=== PATIENT | female | born 1975 | race Caucasian/White ===

== ENCOUNTER 2017-03-18 16:24 | Emergency (ER) | payer MEDICAID ==
[~2017-03-18] VITALS: Ht 152.4 cm; Wt 54.4 kg
[~2017-03-18 16:24] MED LIST: MICO1COM VG
[2017-03-18 16:52] LABS: *URINE HCG, QUAL NEGATIVE (NEGATIVE)
[2017-03-18 16:53] LABS: *BILIRUBIN,URIN NEGATIVE (NEGATIVE); *BLOOD, URINE 2+ (NEGATIVE); *KETONES,URINE NEGATIVE (NEGATIVE); *PROTEIN,URINE NEGATIVE (NEGATIVE); *UROBILINOGEN,URINE 0.2 E.U./dl (NORMAL); LEUKOCYTE ESTERASE ,URINE TRACE (NEGATIVE); NITRITE, URINE NEGATIVE (NEGATIVE); PH,URINE 5.5 (5.0-8.0); UGLUCOSE NEGATIVE (NEGATIVE)
[2017-03-18 17:01] LABS: *CLARITY,URINE HAZY (CLEAR); *COLOR,URINE LIGHT YELLOW (YELLOW)
[2017-03-18 17:02] LABS: BACTERIA,URINE FEW /HPF (NONE SEEN); SQUAMOUS EPITHELIAL CELL,UR MANY /HPF (NONE SEEN)
--- NOTE | 2017-03-18 18:36 | NUR ---
Patient discharged to home in stable conditon. Written and verbal after care instructions given. Patient verbalizes understanding of instructions.
== END 2017-03-18 18:37 | disposition home or self-care (01) ==
LOC: ER 16:32
DX: R30.0 Dysuria (principal); Z88.0 Allergy status to penicillin
CPT/HCPCS: 81001; 84703; 99283; A4663

== ENCOUNTER 2017-05-22 09:32 | Emergency (ER) | payer MEDICAID ==
[~2017-05-22] VITALS: Ht 152.4 cm; Wt 51.3 kg
--- NOTE | 2017-05-22 09:54 | NUR ---
Pt c/o vaginal itching, stinging and discharge x 1 week, has been using OTC cream but it's not clearing up. Pt has no other complaints, no distress noted. Gave pt RX and d/c instructions, verbalized understanding.
== END 2017-05-22 10:04 | disposition home or self-care (01) ==
LOC: ER 09:35
DX: N76.0 Acute vaginitis (principal); Z88.0 Allergy status to penicillin
CPT/HCPCS: 99283; A4663

== ENCOUNTER 2017-06-12 12:32 | Emergency (ER) | payer MEDICAID ==
[~2017-06-12] VITALS: Ht 152.4 cm; Wt 52.6 kg
[2017-06-12 13:11] LABS: *BILIRUBIN,URIN NEGATIVE (NEGATIVE); *BLOOD, URINE 2+ (NEGATIVE); *CLARITY,URINE CLEAR (CLEAR); *COLOR,URINE YELLOW (YELLOW); *KETONES,URINE NEGATIVE (NEGATIVE); *PROTEIN,URINE NEGATIVE (NEGATIVE); *UROBILINOGEN,URINE 0.2 E.U./dl (NORMAL); LEUKOCYTE ESTERASE ,URINE 2+ (NEGATIVE); NITRITE, URINE POSITIVE (NEGATIVE); PH,URINE 5.5 (5.0-8.0); UGLUCOSE NEGATIVE (NEGATIVE)
[2017-06-12 13:22] LABS: BACTERIA,URINE MODERATE /HPF (NONE SEEN); SQUAMOUS EPITHELIAL CELL,UR MODERATE /HPF (NONE SEEN)
[2017-06-12 13:24] LABS: WBC,URINE 50-80 /HPF (0-3)
--- NOTE | 2017-06-12 13:52 | NUR ---
Patient discharged to home in stable conditon. Written and verbal after care instructions given to patient. Patient verbalizes understanding of instructions.
== END 2017-06-12 13:53 | disposition home or self-care (01) ==
LOC: ER 12:36
DX: N30.90 Cystitis, unspecified without hematuria (principal); N39.0 Urinary tract infection, site not specified
CPT/HCPCS: 81001; 87077; 87086; 87186; 99284; A4663

== ENCOUNTER 2017-10-30 12:58 | Emergency (ER) | payer MEDICAID ==
[~2017-10-30] VITALS: Ht 157.5 cm; Wt 63.5 kg
[2017-10-30] MEDS ORDERED: PHEN-894 PO (13:15)
--- NOTE | 2017-10-30 13:17 | NUR ---
PT IS IN ROOM #2B. DR GERONIMO EVALUATED THE PT.
[2017-10-30 13:28] LABS: *BILIRUBIN,URIN NEGATIVE (NEGATIVE); *BLOOD, URINE 3+ (NEGATIVE); *CLARITY,URINE CLEAR (CLEAR); *COLOR,URINE YELLOW (YELLOW); *KETONES,URINE NEGATIVE (NEGATIVE); *PROTEIN,URINE NEGATIVE (NEGATIVE); *UROBILINOGEN,URINE 0.2 E.U./dl (NORMAL); LEUKOCYTE ESTERASE ,URINE NEGATIVE (NEGATIVE); NITRITE, URINE NEGATIVE (NEGATIVE); PH,URINE 6.5 (5.0-8.0); UGLUCOSE NEGATIVE (NEGATIVE)
[2017-10-30 13:38] LABS: *URINE HCG, QUAL NEGATIVE (NEGATIVE); BACTERIA,URINE FEW /HPF (NONE SEEN); RBC,URINE 0-3 /HPF (0-3); SQUAMOUS EPITHELIAL CELL,UR FEW /HPF (NONE SEEN); WBC,URINE 0-3 /HPF (0-3)
--- NOTE | 2017-10-30 13:47 | NUR ---
PT WAS D/C TO HOME. D/C INSTRUCTIONS GIVEN TO THE PT.
[2017-10-30 13:50] VITALS: BP 122/75
== END 2017-10-30 13:51 | disposition home or self-care (01) ==
LOC: ER 12:58
DX: N30.90 Cystitis, unspecified without hematuria (principal); Z88.0 Allergy status to penicillin
CPT/HCPCS: 81001; 84703; 99284; A4663

== ENCOUNTER 2018-01-15 14:36 | Emergency (ER) | payer MEDICAID ==
[~2018-01-15] VITALS: Ht 157.5 cm; Wt 63.5 kg
[~2018-01-15 14:36] MED LIST changes: +PHEN-894 PO
[2018-01-15 15:37] LABS: *BILIRUBIN,URIN NEGATIVE (NEGATIVE); *BLOOD, URINE 2+ (NEGATIVE); *CLARITY,URINE CLEAR (CLEAR); *COLOR,URINE YELLOW (YELLOW); *KETONES,URINE NEGATIVE (NEGATIVE); *PROTEIN,URINE NEGATIVE (NEGATIVE); *UROBILINOGEN,URINE 0.2 E.U./dl (NORMAL); LEUKOCYTE ESTERASE ,URINE NEGATIVE (NEGATIVE); NITRITE, URINE NEGATIVE (NEGATIVE); UGLUCOSE NEGATIVE (NEGATIVE)
[2018-01-15 15:40] LABS: *URINE HCG, QUAL NEGATIVE (NEGATIVE)
[2018-01-15 15:41] LABS: BACTERIA,URINE NONE SEEN /HPF (NONE SEEN); RBC,URINE 0-3 /HPF (0-3); SQUAMOUS EPITHELIAL CELL,UR FEW /HPF (NONE SEEN); WBC,URINE 0-3 /HPF (0-3)
[2018-01-15 16:00] VITALS: BP 116/70
--- NOTE | 2018-01-15 16:01 | NUR ---
Patient discharged to home in stable conditon. Written and verbal after care instructions given by DR Peguero. Patient verbalizes understanding of instructions.
== END 2018-01-15 16:04 | disposition home or self-care (01) ==
LOC: ER 14:36
DX: N30.90 Cystitis, unspecified without hematuria (principal); Z88.0 Allergy status to penicillin; Z79.899 Other long term (current) drug therapy
CPT/HCPCS: 84703; 87086; A4663

== ENCOUNTER 2018-04-22 17:40 | Emergency (ER) | payer MEDICAID ==
[~2018-04-22] VITALS: Ht 152.4 cm; Wt 50.8 kg
[2018-04-22] MEDS ORDERED: ACET-2154 PO (18:17)
--- NOTE | 2018-04-22 18:30 | NUR ---
PATIENT IN ROOM. WAITING TO BE SEEN BY ER PHYSICIAN.
--- NOTE | 2018-04-22 18:33 | NUR ---
LEFT LOWER ABDOMINAL PAIN AND OCCASIONAL BACK PAIN. STATES SHE HAS HAD HISTORY OF CYST. URINE SENT OUT TO LAB.
--- NOTE | 2018-04-22 19:02 | NUR ---
SBAR GIVEN TO
--- NOTE | 2018-04-22 19:24 | NUR ---
Dr. Arevalo at bedside for MSE.
[2018-04-22 19:38] LABS: *BILIRUBIN,URIN NEGATIVE (NEGATIVE); *BLOOD, URINE 2+ (NEGATIVE); *CLARITY,URINE CLEAR (CLEAR); *COLOR,URINE YELLOW (YELLOW); *KETONES,URINE TRACE (NEGATIVE); *PROTEIN,URINE NEGATIVE (NEGATIVE); LEUKOCYTE ESTERASE ,URINE NEGATIVE (NEGATIVE); NITRITE, URINE NEGATIVE (NEGATIVE); UGLUCOSE NEGATIVE (NEGATIVE)
[2018-04-22 19:41] LABS: BACTERIA,URINE MODERATE /HPF (NONE SEEN); SQUAMOUS EPITHELIAL CELL,UR MODERATE /HPF (NONE SEEN); WBC,URINE 0-3 /HPF (0-3)
--- NOTE | 2018-04-22 20:14 | NUR ---
Ultrasound at bedside.
--- NOTE | 2018-04-22 20:49 | NUR ---
Patient discharged to home in stable conditon. Written and verbal after care instructions given. Patient verbalizes understanding of instructions. Pt ambulated out of ER with steady gait, no acute signs of distress, VSS, all belongings taken.
[2018-04-22 20:50] VITALS: BP 104/64
== END 2018-04-22 20:50 | disposition home or self-care (01) ==
LOC: ER 17:43
DX: N80.9 Endometriosis, unspecified (principal); Z88.0 Allergy status to penicillin; Z79.899 Other long term (current) drug therapy
CPT/HCPCS: 76856; A4663

== ENCOUNTER 2018-08-10 10:01 | Emergency (ER) | payer MEDICAID ==
[~2018-08-10] VITALS: Ht 152.4 cm; Wt 48.5 kg
[~2018-08-10 10:01] MED LIST changes: +ACET-2154 PO; -MICO1COM VG; -PHEN-894 PO
== END 2018-08-10 10:32 | disposition home or self-care (01) ==
LOC: ER 10:01
DX: S80.862A Insect bite (nonvenomous), left lower leg, initial encounter (principal); S80.861A Insect bite (nonvenomous), right lower leg, initial encounter; S40.862A Insect bite (nonvenomous) of left upper arm, initial encounter; S40.861A Insect bite (nonvenomous) of right upper arm, initial encounter; Z88.0 Allergy status to penicillin; W57.XXXA Bitten or stung by nonvenomous insect and other nonvenomous arthropods, initial encounter; Y93.89 Activity, other specified; Y92.89 Other specified places as the place of occurrence of the external cause; Y99.8 Other external cause status
CPT/HCPCS: A4663

== ENCOUNTER 2019-03-10 14:06 | Emergency (ER) | payer MEDICAID ==
[~2019-03-10] VITALS: Ht 152.4 cm; Wt 48.5 kg
--- NOTE | 2019-03-10 14:34 | NUR ---
Patient discharged to home in stable conditon. Written and verbal after care instructions given. Patient verbalizes understanding of instructions. Stressed follow up with pmd.
== END 2019-03-10 14:36 | disposition home or self-care (01) ==
LOC: ER 14:06
DX: N80.9 Endometriosis, unspecified (principal); Z88.0 Allergy status to penicillin; Z79.899 Other long term (current) drug therapy
CPT/HCPCS: A4663

== ENCOUNTER 2019-03-16 18:34 | Emergency (ER) | payer MEDICAID ==
[~2019-03-16] VITALS: Ht 152.4 cm; Wt 48.5 kg
--- NOTE | 2019-03-16 18:51 | NUR ---
Dr Peguero is at bedside, pending MD orders@this time.
--- NOTE | 2019-03-16 19:02 | NUR ---
Patient ambulated with stable gait. Speech is clear, speaks in complete sentences. A/Ox4. No neuro deficits. Patient came in for c/o palpitations, she frequently has changes in control medication and can not seem to find any medications suitable without any side effects or reactions. Patient recently started on new control. No respiratory distress, no cough no sob. Patient has hx of endometriosis and states she has discomfort but it is usual for her on a daily basis. Pain management maintained at home with ibuprofen administration. Patient in bed at lowest position, sr upx2, call light within reach. Fall precautions implemented per protocol.
[2019-03-16 19:18] LABS: BASOPHILS % (AUTO) 0.7 % (0.0-2.0); EOSINOPHILS # (AUTO) 0.1 K/uL (0.0-0.7); EOSINOPHILS % (AUTO) 1.4 % (0.0-7.0); HEMATOCRIT 34.8 % (31.2-41.9); HEMOGLOBIN 11.9 g/dL (10.9-14.3); LYMPHOCYTES # (AUTO) 1.9 K/uL (20.0-40.0); LYMPHOCYTES % (AUTO) 33.7 % (20.5-51.5); MEAN CORPUSCULAR HEMOGLOBIN 31.9 uug (24.7-32.8); MEAN CORPUSCULAR HGB CONC 34 g/dL (32.3-35.6); MEAN CORPUSCULAR VOLUME 93.2 fL (75.5-95.3); MONOCYTES # (AUTO) 0.4 K/uL (2.0-10.0); MONOCYTES % (AUTO) 7.8 % (0.0-11.0); NEUTROPHILS # (AUTO) 3.1 K/uL (1.8-8.9); NEUTROPHILS % (AUTO) 56.4 % (38.5-71.5); PLATELET COUNT (AUTO) 255 K/uL (179-408); RED BLOOD CELL COUNT(AUTO) 3.74 MIL/uL (3.63-4.92); WHITE BLOOD COUNT (AUTO) 5.5 K/uL (3.8-11.8)
[2019-03-16 19:24] LABS: CREATININE 0.6 mg/dL (0.6-1.3); POTASSIUM 3.2 mmol/L (3.5-5.1)
[2019-03-16 19:37] LABS: BILIRUBIN,DIRECT 0.1 mg/dL (0.0-0.2); BILIRUBIN,TOTAL 0.4 mg/dL (0.2-1.0); TOTAL PROTEIN, SERUM 7.1 g/dL (6.4-8.2)
--- NOTE | 2019-03-16 20:22 | NUR ---
Patient discharged to home in stable conditon. Written and verbal after care instructions given. Patient verbalizes understanding of instructions. Patient ambulated with stable gait.
[2019-03-16 20:26] VITALS: BP 130/72
== END 2019-03-16 20:27 | disposition home or self-care (01) ==
LOC: ER 18:35
DX: R00.2 Palpitations (principal); N80.9 Endometriosis, unspecified; Z88.0 Allergy status to penicillin; Z79.899 Other long term (current) drug therapy
CPT/HCPCS: 36415; 70030-TC; 85025; 85730; 93005; A4663

== ENCOUNTER 2019-05-07 18:36 | Emergency (ER) | payer MEDICAID ==
[~2019-05-07] VITALS: Ht 152.4 cm; Wt 47.2 kg
--- NOTE | 2019-05-07 19:05 | NUR ---
Patient ambulated with stable gait. Speech clear, speaks in complete sentences. A/Ox4. Patient came for c/o urinary frequency and reports having a foul odor when she voids. Patient started noticing these symptoms x4 days ago. Respiratory even and unlabored, no cough no sob. Afebrile denies any fever or chills. No cardiovascular distress. Denies any n/v/d
[2019-05-07 19:08] LABS: *BILIRUBIN,URIN NEGATIVE (NEGATIVE); *BLOOD, URINE 2+ (NEGATIVE); *CLARITY,URINE CLEAR (CLEAR); *COLOR,URINE LIGHT YELLOW (YELLOW); *KETONES,URINE NEGATIVE (NEGATIVE); *UROBILINOGEN,URINE 0.2 E.U./dl (NORMAL); LEUKOCYTE ESTERASE ,URINE TRACE (NEGATIVE); NITRITE, URINE NEGATIVE (NEGATIVE); PH,URINE 5.5 (5.0-8.0); UGLUCOSE NEGATIVE (NEGATIVE)
[2019-05-07 19:09] LABS: *URINE HCG, QUAL NEGATIVE (NEGATIVE)
[2019-05-07 19:14] LABS: SQUAMOUS EPITHELIAL CELL,UR FEW /HPF (NONE SEEN)
[2019-05-07 19:16] LABS: BACTERIA,URINE NONE SEEN /HPF (NONE SEEN); WBC,URINE 0-3 /HPF (0-3)
--- NOTE | 2019-05-07 19:30 | NUR ---
Patient discharged to home in stable conditon. Written and verbal after care instructions given. Patient verbalizes understanding of instructions. Patient ambulated with stable gait.
[2019-05-07 19:32] VITALS: BP 130/63
== END 2019-05-07 19:33 | disposition home or self-care (01) ==
LOC: ER 18:36
DX: N39.0 Urinary tract infection, site not specified (principal); N80.9 Endometriosis, unspecified; Z88.0 Allergy status to penicillin
CPT/HCPCS: 84703; A4663

== ENCOUNTER 2019-09-01 11:56 | Emergency (ER) | payer MEDICAID ==
[~2019-09-01] VITALS: Ht 154.9 cm; Wt 46.3 kg
--- NOTE | 2019-09-01 12:13 | NUR ---
PT IS IN ROOM #2A. DR GRIMM EVALUATED THE PT.
[2019-09-01 12:44] LABS: *BILIRUBIN,URIN NEGATIVE (NEGATIVE); *BLOOD, URINE 1+ (NEGATIVE); *CLARITY,URINE CLEAR (CLEAR); *COLOR,URINE LIGHT YELLOW (YELLOW); *KETONES,URINE NEGATIVE (NEGATIVE); *UROBILINOGEN,URINE 0.2 E.U./dl (NORMAL); LEUKOCYTE ESTERASE ,URINE NEGATIVE (NEGATIVE); NITRITE, URINE NEGATIVE (NEGATIVE); PH,URINE 7.5 (5.0-8.0); UGLUCOSE NEGATIVE (NEGATIVE)
[2019-09-01 12:55] LABS: SQUAMOUS EPITHELIAL CELL,UR FEW /HPF (NONE SEEN)
[2019-09-01 12:56] LABS: BACTERIA,URINE FEW /HPF (NONE SEEN); WBC,URINE 0-3 /HPF (0-3)
--- NOTE | 2019-09-01 13:14 | NUR ---
PT WAS D/C'd TO HOME. D/C INSTRUCTIONS GIVEN TO THE PT.
[2019-09-01 13:16] VITALS: BP 125/75
== END 2019-09-01 13:16 | disposition home or self-care (01) ==
LOC: ER 11:58
DX: N39.0 Urinary tract infection, site not specified (principal); Z88.0 Allergy status to penicillin; Z90.710 Acquired absence of both cervix and uterus
CPT/HCPCS: A4663

== ENCOUNTER 2019-09-06 09:50 | Emergency (ER) | payer MEDICAID ==
[~2019-09-06] VITALS: Ht 154.9 cm; Wt 46.3 kg
[2019-09-06 10:20] LABS: *BILIRUBIN,URIN NEGATIVE (NEGATIVE); *BLOOD, URINE 1+ (NEGATIVE); *CLARITY,URINE CLEAR (CLEAR); *COLOR,URINE LIGHT YELLOW (YELLOW); *KETONES,URINE NEGATIVE (NEGATIVE); *URINE HCG, QUAL NEGATIVE (NEGATIVE); *UROBILINOGEN,URINE 0.2 E.U./dl (NORMAL); LEUKOCYTE ESTERASE ,URINE NEGATIVE (NEGATIVE); NITRITE, URINE NEGATIVE (NEGATIVE); PH,URINE 7.5 (5.0-8.0); UGLUCOSE NEGATIVE (NEGATIVE)
[2019-09-06 10:22] LABS: RBC,URINE 0-3 /HPF (0-3)
[2019-09-06 10:23] LABS: BACTERIA,URINE FEW /HPF (NONE SEEN); SQUAMOUS EPITHELIAL CELL,UR FEW /HPF (NONE SEEN); WBC,URINE 0-3 /HPF (0-3)
--- NOTE | 2019-09-06 10:36 | NUR ---
PATIENT WAS SEEN BY . DC, RX (INCLUDING PRECAUTIONS) AND FOLLOW UP INSTRUCTIONS GIVEN AND EXPLAINED TO PATIENT WHO STATES SHE UNDERSTANDS ALL INSTRUCTIONS.
== END 2019-09-06 10:37 | disposition home or self-care (01) ==
LOC: EDBD 09:50 → ER 09:50
DX: G89.18 Other acute postprocedural pain (principal); R10.9 Unspecified abdominal pain; Z90.710 Acquired absence of both cervix and uterus; Z88.0 Allergy status to penicillin
CPT/HCPCS: 84703; A4663

== ENCOUNTER 2019-09-26 10:18 | Emergency (ER) | payer MEDICAID ==
[~2019-09-26] VITALS: Ht 154.9 cm; Wt 46.7 kg
--- NOTE | 2019-09-26 10:30 | NUR ---
Dr Red at the bedside for MSE.
[2019-09-26 10:46] LABS: *BILIRUBIN,URIN NEGATIVE (NEGATIVE); *CLARITY,URINE CLEAR (CLEAR); *COLOR,URINE YELLOW (YELLOW); *KETONES,URINE NEGATIVE (NEGATIVE); *UROBILINOGEN,URINE 0.2 E.U./dl (NORMAL); LEUKOCYTE ESTERASE ,URINE NEGATIVE (NEGATIVE); NITRITE, URINE NEGATIVE (NEGATIVE); PH,URINE 8.5 (5.0-8.0); UGLUCOSE NEGATIVE (NEGATIVE)
[2019-09-26 10:48] LABS: *BLOOD, URINE NEGATIVE (NEGATIVE)
[2019-09-26 10:54] LABS: *URINE HCG, QUAL NEGATIVE (NEGATIVE)
[2019-09-26] MEDS ORDERED: HYDROCODONE/APAP 5-325MG TABLET ONE (11:14)
[2019-09-26] MEDS ORDERED: HYDROCODONE/APAP 5-325MG TABLET PO ONE (11:15)
[2019-09-26 11:22] LABS: BASOPHILS % (AUTO) 0.6 % (0.0-2.0); EOSINOPHILS # (AUTO) 0.1 K/uL (0.0-0.7); EOSINOPHILS % (AUTO) 1.5 % (0.0-7.0); HEMATOCRIT 38.3 % (31.2-41.9); HEMOGLOBIN 12.7 g/dL (10.9-14.3); LYMPHOCYTES # (AUTO) 1.3 K/uL (20.0-40.0); LYMPHOCYTES % (AUTO) 34.4 % (20.5-51.5); MEAN CORPUSCULAR HEMOGLOBIN 31.4 uug (24.7-32.8); MEAN CORPUSCULAR HGB CONC 33 g/dL (32.3-35.6); MEAN CORPUSCULAR VOLUME 94.4 fL (75.5-95.3); MONOCYTES # (AUTO) 0.3 K/uL (2.0-10.0); MONOCYTES % (AUTO) 8.1 % (0.0-11.0); NEUTROPHILS # (AUTO) 2.1 K/uL (1.8-8.9); NEUTROPHILS % (AUTO) 55.4 % (38.5-71.5); PLATELET COUNT (AUTO) 261 K/uL (179-408); RED BLOOD CELL COUNT(AUTO) 4.05 MIL/uL (3.63-4.92); WHITE BLOOD COUNT (AUTO) 3.8 K/uL (3.8-11.8)
[2019-09-26 11:34] LABS: BILIRUBIN,DIRECT 0.1 mg/dL (0.0-0.2); BILIRUBIN,TOTAL 0.3 mg/dL (0.2-1.0); CREATININE 0.6 mg/dL (0.6-1.3); POTASSIUM 3.9 mmol/L (3.5-5.1); TOTAL PROTEIN, SERUM 7.3 g/dL (6.4-8.2)
--- NOTE | 2019-09-26 11:50 | NUR ---
Pt resting in bed, speaking on the phone, no c/o pain at this time.
--- NOTE | 2019-09-26 12:48 | NUR ---
Patient discharged to home in stable conditon. Written and verbal after care instructions given. Patient verbalizes understanding of instructions.
[2019-09-26 12:50] VITALS: BP 120/56
== END 2019-09-26 12:50 | disposition home or self-care (01) ==
LOC: ER 10:18
DX: K52.9 Noninfective gastroenteritis and colitis, unspecified (principal); Z90.710 Acquired absence of both cervix and uterus; Z88.0 Allergy status to penicillin
CPT/HCPCS: 36415; 84703; 85025; A4663

== ENCOUNTER 2019-10-14 14:13 | Emergency (ER) | payer MEDICAID ==
[~2019-10-14] VITALS: Ht 152.4 cm; Wt 46.3 kg
[2019-10-14 15:14] LABS: BASOPHILS % (AUTO) 0.9 % (0.0-2.0); EOSINOPHILS # (AUTO) 0.1 K/uL (0.0-0.7); EOSINOPHILS % (AUTO) 1.4 % (0.0-7.0); HEMATOCRIT 35.3 % (31.2-41.9); HEMOGLOBIN 11.8 g/dL (10.9-14.3); LYMPHOCYTES # (AUTO) 1.6 K/uL (20.0-40.0); LYMPHOCYTES % (AUTO) 31.8 % (20.5-51.5); MEAN CORPUSCULAR HEMOGLOBIN 31.6 uug (24.7-32.8); MEAN CORPUSCULAR HGB CONC 34 g/dL (32.3-35.6); MEAN CORPUSCULAR VOLUME 94.3 fL (75.5-95.3); MONOCYTES # (AUTO) 0.5 K/uL (2.0-10.0); MONOCYTES % (AUTO) 9.8 % (0.0-11.0); NEUTROPHILS # (AUTO) 2.9 K/uL (1.8-8.9); NEUTROPHILS % (AUTO) 56.1 % (38.5-71.5); PLATELET COUNT (AUTO) 263 K/uL (179-408); RED BLOOD CELL COUNT(AUTO) 3.74 MIL/uL (3.63-4.92); WHITE BLOOD COUNT (AUTO) 5.1 K/uL (3.8-11.8)
[2019-10-14 15:18] LABS: *BILIRUBIN,URIN NEGATIVE (NEGATIVE); *CLARITY,URINE CLEAR (CLEAR); *COLOR,URINE YELLOW (YELLOW); *KETONES,URINE NEGATIVE (NEGATIVE); *UROBILINOGEN,URINE 0.2 E.U./dl (NORMAL); LEUKOCYTE ESTERASE ,URINE NEGATIVE (NEGATIVE); NITRITE, URINE NEGATIVE (NEGATIVE); UGLUCOSE NEGATIVE (NEGATIVE)
[2019-10-14 15:19] LABS: *BLOOD, URINE TRACE (NEGATIVE)
[2019-10-14 15:36] LABS: ALANINE AMINOTRANSFERASE 26 U/L (14-59); ALKALINE PHOSPHATASE 76 U/L (50-136); ASPARTATE AMINOTRANSFERASE 16 U/L (15-37); BILIRUBIN,DIRECT 0.1 mg/dL (0.0-0.2); BILIRUBIN,TOTAL 0.2 mg/dL (0.2-1.0); CARBON DIOXIDE 27 mmol/L (21-32); CHLORIDE 105 mmol/L (98-107); CREATININE 0.5 mg/dL (0.6-1.3); GLUCOSE 83 mg/dL (74-106); LIPASE 158 U/L (73-393); POTASSIUM 3.9 mmol/L (3.5-5.1); TOTAL PROTEIN, SERUM 7.1 g/dL (6.4-8.2); UREA NITROGEN, BLOOD 7 mg/dL (7-18)
[2019-10-14 15:43] LABS: BACTERIA,URINE FEW /HPF (NONE SEEN); RBC,URINE 0-3 /HPF (0-3); SQUAMOUS EPITHELIAL CELL,UR MANY /HPF (NONE SEEN); WBC,URINE 0-3 /HPF (0-3)
--- NOTE | 2019-10-14 15:45 | NUR ---
Patient discharged to home in stable conditon. Written and verbal after care instructions given. Patient verbalizes understanding of instructions.
== END 2019-10-14 15:52 | disposition home or self-care (01) ==
LOC: ER 14:13
DX: R10.30 Lower abdominal pain, unspecified (principal); Z90.710 Acquired absence of both cervix and uterus; Z88.0 Allergy status to penicillin
CPT/HCPCS: 36415; 83690; 85025; A4663

== ENCOUNTER 2020-03-18 00:03 | Emergency (ER) | payer MEDICAID ==
[~2020-03-18] VITALS: Ht 157.5 cm; Wt 46.7 kg
--- NOTE | 2020-03-18 00:26 | NUR ---
CHAPERONED DR. WOODWARD FOR PELVIC EXAM.
[2020-03-18] MEDS ORDERED: FLUCONAZOLE 100 MG TABLET PO ONE (00:30)
[2020-03-18 00:36] LABS: *BILIRUBIN,URIN NEGATIVE (NEGATIVE); *BLOOD, URINE 1+ (NEGATIVE); *CLARITY,URINE CLEAR (CLEAR); *KETONES,URINE NEGATIVE (NEGATIVE); *UROBILINOGEN,URINE 0.2 E.U./dl (NORMAL); LEUKOCYTE ESTERASE ,URINE NEGATIVE (NEGATIVE); NITRITE, URINE NEGATIVE (NEGATIVE); UGLUCOSE NEGATIVE (NEGATIVE)
[2020-03-18 00:37] LABS: *COLOR,URINE STRAW (YELLOW)
[2020-03-18 00:42] LABS: BACTERIA,URINE NONE SEEN /HPF (NONE SEEN); RBC,URINE 0-3 /HPF (0-3); SQUAMOUS EPITHELIAL CELL,UR FEW /HPF (NONE SEEN); WBC,URINE 0-3 /HPF (0-3)
[2020-03-18] MEDS ORDERED: FLUCONAZOLE 100 MG TABLET ONE (00:48)
--- NOTE | 2020-03-18 00:51 | NUR ---
Patient discharged to home in stable condition. Written and verbal after care instructions given. Patient verbalizes understanding of instructions. Stressed follow up or return to ER for worsening s/s.
[2020-03-18 00:55] VITALS: BP 115/71
== END 2020-03-18 00:57 | disposition home or self-care (01) ==
LOC: ER 00:06
DX: B37.3 Candidiasis of vulva and vagina (principal); Z90.710 Acquired absence of both cervix and uterus
CPT/HCPCS: A4663

== ENCOUNTER 2020-03-23 07:40 | Emergency (ER) | payer MEDICAID ==
[~2020-03-23] VITALS: Ht 149.9 cm; Wt 47.2 kg
[2020-03-23 08:49] LABS: *BILIRUBIN,URIN NEGATIVE (NEGATIVE); *BLOOD, URINE 3+ (NEGATIVE); *CLARITY,URINE SLIGHTLY CLOUDY (CLEAR); *COLOR,URINE YELLOW (YELLOW); *KETONES,URINE NEGATIVE (NEGATIVE); *URINE HCG, QUAL NEGATIVE (NEGATIVE); *UROBILINOGEN,URINE 0.2 E.U./dl (NORMAL); LEUKOCYTE ESTERASE ,URINE 1+ (NEGATIVE); NITRITE, URINE NEGATIVE (NEGATIVE); UGLUCOSE NEGATIVE (NEGATIVE)
[2020-03-23 08:56] LABS: SQUAMOUS EPITHELIAL CELL,UR MANY /HPF (NONE SEEN)
[2020-03-23 08:57] LABS: BACTERIA,URINE MANY /HPF (NONE SEEN)
[2020-03-23 09:04] LABS: RBC,URINE 0-3 /HPF (0-3)
[2020-03-23] MEDS ORDERED: PHENAZOPYRIDINE HCL 100 MG TABLET PO ONE (09:15)
[2020-03-23] MEDS ORDERED: NITROFURANTOIN/NITROFURAN MAC 100 MG CAPSULE PO ONE (09:15)
[2020-03-23] MEDS ORDERED: PHENAZOPYRIDINE HCL 100 MG TABLET ONE (09:20)
[2020-03-23] MEDS ORDERED: NITROFURANTOIN/NITROFURAN MAC 100 MG CAPSULE ONE (09:20)
--- NOTE | 2020-03-23 09:30 | NUR ---
Gave pt RX and d/c instructions, verbalized understanding.
== END 2020-03-23 09:35 | disposition home or self-care (01) ==
LOC: ER 07:40
DX: N30.01 Acute cystitis with hematuria (principal); Z90.710 Acquired absence of both cervix and uterus
CPT/HCPCS: 84703; 87077; 87086; A4663

== ENCOUNTER 2020-05-10 15:09 | Emergency (ER) | payer MEDICAID ==
[~2020-05-10] VITALS: Ht 149.9 cm; Wt 47.2 kg
[2020-05-10] MEDS ORDERED: IV NORMAL SALINE 1000 ML BAG IV ONE (15:45)
[2020-05-10 15:51] LABS: *BILIRUBIN,URIN NEGATIVE (NEGATIVE); *CLARITY,URINE CLEAR (CLEAR); *COLOR,URINE LIGHT YELLOW (YELLOW); *KETONES,URINE NEGATIVE (NEGATIVE); *URINE HCG, QUAL NEG (NEGATIVE); *UROBILINOGEN,URINE 0.2 E.U./dl (NORMAL); LEUKOCYTE ESTERASE ,URINE NEGATIVE (NEGATIVE); NITRITE, URINE NEGATIVE (NEGATIVE); UGLUCOSE NEGATIVE (NEGATIVE)
[2020-05-10 15:52] LABS: *BLOOD, URINE TRACE (NEGATIVE)
[2020-05-10 15:59] LABS: BASOPHILS % (AUTO) 0.6 % (0.0-2.0); EOSINOPHILS # (AUTO) 0.1 K/uL (0.0-0.7); EOSINOPHILS % (AUTO) 1.2 % (0.0-7.0); HEMATOCRIT 38.8 % (31.2-41.9); LYMPHOCYTES # (AUTO) 1.7 K/uL (20.0-40.0); LYMPHOCYTES % (AUTO) 28.3 % (20.5-51.5); MEAN CORPUSCULAR HEMOGLOBIN 31.7 uug (24.7-32.8); MEAN CORPUSCULAR HGB CONC 33 g/dL (32.3-35.6); MEAN CORPUSCULAR VOLUME 94.8 fL (75.5-95.3); MONOCYTES # (AUTO) 0.5 K/uL (2.0-10.0); MONOCYTES % (AUTO) 9.1 % (0.0-11.0); NEUTROPHILS # (AUTO) 3.6 K/uL (1.8-8.9); NEUTROPHILS % (AUTO) 60.8 % (38.5-71.5); PLATELET COUNT (AUTO) 277 K/uL (179-408); RED BLOOD CELL COUNT(AUTO) 4.09 MIL/uL (3.63-4.92); WHITE BLOOD COUNT (AUTO) 5.9 K/uL (3.8-11.8)
[2020-05-10 16:14] LABS: ALANINE AMINOTRANSFERASE 18 U/L (14-59); ALKALINE PHOSPHATASE 59 U/L (50-136); ASPARTATE AMINOTRANSFERASE 19 U/L (15-37); BILIRUBIN,DIRECT < 0.1 mg/dL (0.0-0.2); BILIRUBIN,TOTAL 0.2 mg/dL (0.2-1.0); CARBON DIOXIDE 28 mmol/L (21-32); CHLORIDE 106 mmol/L (98-107); CREATININE 0.8 mg/dL (0.6-1.3); GLUCOSE 92 mg/dL (74-106); POTASSIUM 3.9 mmol/L (3.5-5.1); TOTAL PROTEIN, SERUM 7.7 g/dL (6.4-8.2); UREA NITROGEN, BLOOD 7 mg/dL (7-18)
[2020-05-10 17:10] VITALS: BP 110/57
[2020-05-10 17:41] LABS: BACTERIA,URINE NONE SEEN /HPF (NONE SEEN); SQUAMOUS EPITHELIAL CELL,UR FEW /HPF (NONE SEEN); WBC,URINE 0-3 /HPF (0-3)
== END 2020-05-10 17:11 | disposition home or self-care (01) ==
LOC: ER 15:13
DX: R10.32 Left lower quadrant pain (principal); Z90.710 Acquired absence of both cervix and uterus; Z87.19 Personal history of other diseases of the digestive system
CPT/HCPCS: 36415; 84703; 85025; A4663; J7030

== ENCOUNTER 2020-06-25 05:52 | Emergency (ER) | payer MEDICAID ==
[~2020-06-25] VITALS: Ht 165.1 cm; Wt 47.2 kg
[2020-06-25] MEDS ORDERED: KETOROLAC TROMETHAMINE 15 MG INJ IVP ONE (06:45)
[2020-06-25] MEDS ORDERED: IV NORMAL SALINE 1000 ML BAG IV ONE (06:45)
[2020-06-25 06:46] LABS: *BILIRUBIN,URIN NEGATIVE (NEGATIVE); *BLOOD, URINE 1+ (NEGATIVE); *CLARITY,URINE CLEAR (CLEAR); *COLOR,URINE YELLOW (YELLOW); *KETONES,URINE NEGATIVE (NEGATIVE); *UROBILINOGEN,URINE 0.2 E.U./dl (NORMAL); LEUKOCYTE ESTERASE ,URINE NEGATIVE (NEGATIVE); NITRITE, URINE NEGATIVE (NEGATIVE); UGLUCOSE NEGATIVE (NEGATIVE)
[2020-06-25 06:58] LABS: BASOPHILS % (AUTO) 0.5 % (0.0-2.0); EOSINOPHILS % (AUTO) 0.9 % (0.0-7.0); HEMATOCRIT 38.1 % (31.2-41.9); HEMOGLOBIN 12.8 g/dL (10.9-14.3); LYMPHOCYTES # (AUTO) 1.8 K/uL (20.0-40.0); LYMPHOCYTES % (AUTO) 33.4 % (20.5-51.5); MEAN CORPUSCULAR HEMOGLOBIN 31.9 uug (24.7-32.8); MEAN CORPUSCULAR HGB CONC 34 g/dL (32.3-35.6); MEAN CORPUSCULAR VOLUME 94.5 fL (75.5-95.3); MONOCYTES # (AUTO) 0.6 K/uL (2.0-10.0); MONOCYTES % (AUTO) 10.9 % (0.0-11.0); NEUTROPHILS # (AUTO) 2.9 K/uL (1.8-8.9); NEUTROPHILS % (AUTO) 54.3 % (38.5-71.5); PLATELET COUNT (AUTO) 276 K/uL (179-408); RED BLOOD CELL COUNT(AUTO) 4.03 MIL/uL (3.63-4.92); WHITE BLOOD COUNT (AUTO) 5.4 K/uL (3.8-11.8)
[2020-06-25 07:04] LABS: CREATININE 0.8 mg/dL (0.6-1.3); POTASSIUM 3.5 mmol/L (3.5-5.1)
[2020-06-25] MEDS ORDERED: KETOROLAC TROMETHAMINE 15 MG INJ ONE (07:15)
--- NOTE | 2020-06-25 07:35 | NUR ---
Female [employer] teacher accompanied female patient for (Dr Montanez).
--- NOTE | 2020-06-25 08:36 | NUR ---
IV removed. Catheter intact and site benign. Pressure and 4x4 gauze applied to site. No bleeding noted.Patient discharged to home in stable condition. Written and verbal after care instructions given. Patient verbalizes understanding of instructions. Stressed follow up or return to ER for worsening s/s. Patient ambulated with steady gait. NAD noted
[2020-06-25 08:39] VITALS: BP 116/69
[2020-06-25 13:06] LABS: BACTERIA,URINE FEW /HPF (NONE SEEN); RBC,URINE 0-3 /HPF (0-3); SQUAMOUS EPITHELIAL CELL,UR FEW /HPF (NONE SEEN); WBC,URINE NONE SEEN /HPF (0-3)
== END 2020-06-25 08:36 | disposition home or self-care (01) ==
LOC: ER 06:07
DX: R10.2 Pelvic and perineal pain (principal); Z87.440 Personal history of urinary (tract) infections; Z88.0 Allergy status to penicillin; Z90.710 Acquired absence of both cervix and uterus; Z87.19 Personal history of other diseases of the digestive system
CPT/HCPCS: 36415; 76770; 80048; 81001; 85025; 96374; 99284; J1885; A4663; J7030

== ENCOUNTER 2020-08-16 23:45 | Emergency (ER) | payer MEDICAID ==
[~2020-08-16] VITALS: Ht 152.4 cm; Wt 47.2 kg
[2020-08-17 00:12] LABS: BASOPHILS % (AUTO) 0.7 % (0.0-2.0); EOSINOPHILS # (AUTO) 0.1 K/uL (0.0-0.7); EOSINOPHILS % (AUTO) 2.1 % (0.0-7.0); HEMATOCRIT 36.3 % (31.2-41.9); HEMOGLOBIN 12.2 g/dL (10.9-14.3); LYMPHOCYTES # (AUTO) 2.2 K/uL (20.0-40.0); LYMPHOCYTES % (AUTO) 43.7 % (20.5-51.5); MEAN CORPUSCULAR HEMOGLOBIN 32.2 uug (24.7-32.8); MEAN CORPUSCULAR HGB CONC 34 g/dL (32.3-35.6); MEAN CORPUSCULAR VOLUME 95.6 fL (75.5-95.3); MONOCYTES # (AUTO) 0.5 K/uL (2.0-10.0); MONOCYTES % (AUTO) 9.7 % (0.0-11.0); NEUTROPHILS # (AUTO) 2.2 K/uL (1.8-8.9); NEUTROPHILS % (AUTO) 43.8 % (38.5-71.5); PLATELET COUNT (AUTO) 281 K/uL (179-408); WHITE BLOOD COUNT (AUTO) 5.1 K/uL (3.8-11.8)
[2020-08-17 00:12] LABS: *BILIRUBIN,URIN NEGATIVE (NEGATIVE); *BLOOD, URINE 1+ (NEGATIVE); *CLARITY,URINE CLEAR (CLEAR); *COLOR,URINE LIGHT YELLOW (YELLOW); *KETONES,URINE NEGATIVE (NEGATIVE); *UROBILINOGEN,URINE 0.2 E.U./dl (NORMAL); LEUKOCYTE ESTERASE ,URINE NEGATIVE (NEGATIVE); NITRITE, URINE NEGATIVE (NEGATIVE); UGLUCOSE NEGATIVE (NEGATIVE)
[2020-08-17 00:17] LABS: CREATININE 0.6 mg/dL (0.6-1.3); POTASSIUM 3.8 mmol/L (3.5-5.1)
[2020-08-17 00:23] LABS: BILIRUBIN,DIRECT 0.1 mg/dL (0.0-0.2); BILIRUBIN,TOTAL 0.2 mg/dL (0.2-1.0); TOTAL PROTEIN, SERUM 7.4 g/dL (6.4-8.2)
[2020-08-17] MEDS: IBUPROFEN 600 MG TABLET PO ONE (00:43)
[2020-08-17 00:45] VITALS: BP 118/74
[2020-08-17] MEDS ORDERED: IBUPROFEN 600 MG TABLET ONE (00:47)
[2020-08-17 03:35] LABS: BACTERIA,URINE NONE SEEN /HPF (NONE SEEN); RBC,URINE 0-3 /HPF (0-3); SQUAMOUS EPITHELIAL CELL,UR FEW /HPF (NONE SEEN); WBC,URINE 0-3 /HPF (0-3)
== END 2020-08-17 00:40 | disposition home or self-care (01) ==
LOC: ER 23:48
DX: G89.29 Other chronic pain (principal); R10.30 Lower abdominal pain, unspecified; Z90.710 Acquired absence of both cervix and uterus; Z88.0 Allergy status to penicillin; Z87.440 Personal history of urinary (tract) infections; Z86.19 Personal history of other infectious and parasitic diseases
CPT/HCPCS: 36415; 83690; 85025

== ENCOUNTER 2020-10-11 07:21 | Emergency (ER) | payer MEDICAID ==
[~2020-10-11] VITALS: Ht 152.4 cm; Wt 47.2 kg
[2020-10-11 07:49] LABS: *BILIRUBIN,URIN NEGATIVE (NEGATIVE); *BLOOD, URINE 3+ (NEGATIVE); *CLARITY,URINE CLEAR (CLEAR); *COLOR,URINE Orange (YELLOW); *KETONES,URINE NEGATIVE (NEGATIVE); LEUKOCYTE ESTERASE ,URINE 1+ (NEGATIVE); NITRITE, URINE POSITIVE (NEGATIVE); UGLUCOSE TRACE (NEGATIVE)
[2020-10-11 07:50] VITALS: BP 99/73
[2020-10-11 07:52] LABS: *URINE HCG, QUAL NEG (NEGATIVE)
[2020-10-11 11:02] LABS: BACTERIA,URINE MODERATE /HPF (NONE SEEN); SQUAMOUS EPITHELIAL CELL,UR MODERATE /HPF (NONE SEEN)
== END 2020-10-11 07:52 | disposition home or self-care (01) ==
LOC: ER 07:21
DX: N39.0 Urinary tract infection, site not specified (principal); Z90.710 Acquired absence of both cervix and uterus; Z87.440 Personal history of urinary (tract) infections
CPT/HCPCS: 84703; 87077; 87086; A4663

== ENCOUNTER 2020-10-18 09:50 | Emergency (ER) | payer MEDICAID ==
[~2020-10-18] VITALS: Ht 154.9 cm; Wt 59.0 kg
[2020-10-18 11:10] LABS: *URINE HCG, QUAL NEG (NEGATIVE)
[2020-10-18 11:11] LABS: *BILIRUBIN,URIN 1+ (NEGATIVE); *BLOOD, URINE 3+ (NEGATIVE); *CLARITY,URINE TURBID (CLEAR); *COLOR,URINE DARK YELLOW (YELLOW); *KETONES,URINE NEGATIVE (NEGATIVE); LEUKOCYTE ESTERASE ,URINE 3+ (NEGATIVE); NITRITE, URINE POSITIVE (NEGATIVE); UGLUCOSE NEGATIVE (NEGATIVE)
[2020-10-18 11:33] VITALS: BP 110/66
[2020-10-18 15:39] LABS: BACTERIA,URINE MODERATE /HPF (NONE SEEN); RBC,URINE 50-80 /HPF (0-3); SQUAMOUS EPITHELIAL CELL,UR NONE SEEN /HPF (NONE SEEN); WBC,URINE TNTC /HPF (0-3)
== END 2020-10-18 11:33 | disposition home or self-care (01) ==
LOC: ER 09:50
DX: N39.0 Urinary tract infection, site not specified (principal); Z90.710 Acquired absence of both cervix and uterus
CPT/HCPCS: 84703; 87077; 87086; A4663

== ENCOUNTER 2020-10-25 11:19 | Emergency (ER) | payer MEDICAID ==
[~2020-10-25] VITALS: Ht 152.4 cm; Wt 47.6 kg
[2020-10-25 11:46] VITALS: BP 101/68
[2020-10-25 11:50] LABS: *BILIRUBIN,URIN NEGATIVE (NEGATIVE); *BLOOD, URINE 2+ (NEGATIVE); *COLOR,URINE YELLOW (YELLOW); *KETONES,URINE NEGATIVE (NEGATIVE); *UROBILINOGEN,URINE 0.2 E.U./dl (NORMAL); LEUKOCYTE ESTERASE ,URINE 2+ (NEGATIVE); NITRITE, URINE POSITIVE (NEGATIVE); UGLUCOSE NEGATIVE (NEGATIVE)
[2020-10-25 11:56] LABS: *CLARITY,URINE TURBID (CLEAR); RBC,URINE 50-80 /HPF (0-3); WBC,URINE TNTC /HPF (0-3)
[2020-10-25 11:57] LABS: BACTERIA,URINE MODERATE /HPF (NONE SEEN); SQUAMOUS EPITHELIAL CELL,UR MODERATE /HPF (NONE SEEN)
== END 2020-10-25 11:47 | disposition home or self-care (01) ==
LOC: ER 11:19
DX: N39.0 Urinary tract infection, site not specified (principal); G89.29 Other chronic pain; R10.9 Unspecified abdominal pain; Z90.710 Acquired absence of both cervix and uterus; Z87.440 Personal history of urinary (tract) infections
CPT/HCPCS: 87086; A4663

== ENCOUNTER 2020-10-28 18:11 | Emergency (ER) | payer MEDICAID ==
[~2020-10-28] VITALS: Ht 152.4 cm; Wt 47.2 kg
[2020-10-28] MEDS ORDERED: CEPH-570 PO (18:28)
[2020-10-28 18:59] LABS: *BILIRUBIN,URIN 1+ (NEGATIVE); *BLOOD, URINE 1+ (NEGATIVE); *COLOR,URINE DARK YELLOW (YELLOW); *KETONES,URINE NEGATIVE (NEGATIVE); LEUKOCYTE ESTERASE ,URINE NEGATIVE (NEGATIVE); NITRITE, URINE POSITIVE (NEGATIVE); PH,URINE 6.5 (5.0-8.0); UGLUCOSE TRACE (NEGATIVE)
[2020-10-28 19:04] LABS: *URINE HCG, QUAL NEGATIVE (NEGATIVE)
[2020-10-28 19:15] LABS: *CLARITY,URINE HAZY (CLEAR); BACTERIA,URINE FEW /HPF (NONE SEEN); SQUAMOUS EPITHELIAL CELL,UR MODERATE /HPF (NONE SEEN)
[2020-10-28] MEDS: CEFTRIAXONE 500 MG VIAL IM ONE (19:58)
[2020-10-28] MEDS ORDERED: CEFTRIAXONE 500 MG VIAL ONE (19:58)
[2020-10-28] MEDS ORDERED: LIDOCAINE HCL 1% 20 ML VIAL ONE (19:58)
[2020-10-28] MEDS ORDERED: AZITHROMYCIN 250 MG TABLET ONE (19:58)
[2020-10-28] MEDS: AZITHROMYCIN 250 MG TABLET PO ONE (19:58)
[2020-10-28 20:16] VITALS: BP 107/68
== END 2020-10-28 20:16 | disposition home or self-care (01) ==
LOC: ER 18:21
DX: N30.90 Cystitis, unspecified without hematuria (principal); Z87.440 Personal history of urinary (tract) infections; Z90.710 Acquired absence of both cervix and uterus
CPT/HCPCS: 81001; 84703; 87086; 87491; 96372; 99283; J0696; J3490; A4663; Q0144

== ENCOUNTER 2021-07-24 00:19 | Emergency (ER) | payer SELFPAY ==
[~2021-07-24] VITALS: Ht 157.5 cm; Wt 48.1 kg
[~2021-07-24 00:19] MED LIST changes: -ACET-2154 PO; +CEPH-570 PO
[2021-07-24 00:40] LABS: *BILIRUBIN,URIN NEGATIVE (NEGATIVE); *BLOOD, URINE 1+ (NEGATIVE); *CLARITY,URINE CLEAR (CLEAR); *COLOR,URINE YELLOW (YELLOW); *KETONES,URINE NEGATIVE (NEGATIVE); *UROBILINOGEN,URINE 0.2 E.U./dl (NORMAL); LEUKOCYTE ESTERASE ,URINE NEGATIVE (NEGATIVE); NITRITE, URINE NEGATIVE (NEGATIVE); UGLUCOSE NEGATIVE (NEGATIVE)
[2021-07-24 00:58] LABS: *URINE HCG, QUAL NEGATIVE (NEGATIVE); BACTERIA,URINE NONE SEEN /HPF (NONE SEEN); SQUAMOUS EPITHELIAL CELL,UR FEW /HPF (NONE SEEN); WBC,URINE NONE SEEN /HPF (0-3)
[2021-07-24] MEDS ORDERED: HYDR-4209 PO (01:33)
[2021-07-24] MEDS ORDERED: HYDROCODONE/APAP 5-325MG TABLET ONE (01:41)
[2021-07-24] MEDS ORDERED: HYDROCODONE/APAP 5-325MG TABLET PO ONE (01:45)
[2021-07-24 02:07] VITALS: BP 117/75
== END 2021-07-24 02:07 | disposition home or self-care (01) ==
LOC: ER 00:22
DX: N30.11 Interstitial cystitis (chronic) with hematuria (principal); G89.29 Other chronic pain; R10.2 Pelvic and perineal pain; R03.0 Elevated blood-pressure reading, without diagnosis of hypertension; Z90.710 Acquired absence of both cervix and uterus
CPT/HCPCS: 84703; A4663

== ENCOUNTER 2021-08-17 15:29 | Emergency (ER) | payer MEDICAID ==
[~2021-08-17] VITALS: Ht 157.5 cm; Wt 48.1 kg
[~2021-08-17 15:29] MED LIST changes: +HYDR-4209 PO
[2021-08-17] MEDS ORDERED: FLUC150T PO (15:57)
[2021-08-17] MEDS ORDERED: NITR100C11 PO (15:57)
[2021-08-17 16:00] LABS: *BILIRUBIN,URIN NEGATIVE (NEGATIVE); *BLOOD, URINE 1+ (NEGATIVE); *CLARITY,URINE CLEAR (CLEAR); *COLOR,URINE LIGHT YELLOW (YELLOW); *KETONES,URINE NEGATIVE (NEGATIVE); *UROBILINOGEN,URINE 0.2 E.U./dl (NORMAL); LEUKOCYTE ESTERASE ,URINE NEGATIVE (NEGATIVE); NITRITE, URINE NEGATIVE (NEGATIVE); PH,URINE 6.5 (5.0-8.0); UGLUCOSE NEGATIVE (NEGATIVE)
--- NOTE | 2021-08-17 16:10 | NUR ---
[employer] Supervisor assumes care: (1st contact with patient) Patient is AOx4, for discharge by Dr Villagomez. Urine specimen was sent earlier. Patient left ER in stable condition. Written and verbal after care instructions given to patient. Patient verbalized understanding and compliance of instructions. Stressed follow up with her primary doctor or return to ER for worsening s/s.
[2021-08-17 16:11] LABS: *URINE HCG, QUAL NEGATIVE (NEGATIVE); BACTERIA,URINE NONE SEEN /HPF (NONE SEEN); WBC,URINE 0-3 /HPF (0-3)
[2021-08-17 16:12] LABS: SQUAMOUS EPITHELIAL CELL,UR FEW /HPF (NONE SEEN)
== END 2021-08-17 16:11 | disposition home or self-care (01) ==
LOC: ER 15:29
DX: N39.0 Urinary tract infection, site not specified (principal); N76.0 Acute vaginitis
CPT/HCPCS: 84703; 87086; A4663

== ENCOUNTER 2021-08-19 14:43 | Emergency (ER) | payer MEDICAID ==
[~2021-08-19] VITALS: Ht 167.6 cm; Wt 54.4 kg
[~2021-08-19 14:43] MED LIST changes: +FLUC150T PO; +NITR100C11 PO
[2021-08-19 15:27] LABS: *URINE HCG, QUAL NEG (NEGATIVE)
[2021-08-19 15:28] LABS: *BILIRUBIN,URIN NEGATIVE (NEGATIVE); *BLOOD, URINE TRACE (NEGATIVE); *CLARITY,URINE CLEAR (CLEAR); *COLOR,URINE LIGHT YELLOW (YELLOW); *KETONES,URINE NEGATIVE (NEGATIVE); *UROBILINOGEN,URINE 0.2 E.U./dl (NORMAL); LEUKOCYTE ESTERASE ,URINE NEGATIVE (NEGATIVE); NITRITE, URINE NEGATIVE (NEGATIVE); UGLUCOSE NEGATIVE (NEGATIVE)
--- NOTE | 2021-08-19 16:09 | NUR ---
CHAPERONED MD WITH VAGINAL EXAM.
[2021-08-19] MEDS ORDERED: TERC20CR5 VG (16:17)
[2021-08-19] MEDS ORDERED: FLUC150T5 PO (16:23)
[2021-08-19 17:52] LABS: BACTERIA,URINE NONE SEEN /HPF (NONE SEEN); RBC,URINE 0-3 /HPF (0-3); SQUAMOUS EPITHELIAL CELL,UR FEW /HPF (NONE SEEN); WBC,URINE 0-3 /HPF (0-3)
== END 2021-08-19 16:25 | disposition home or self-care (01) ==
LOC: ER 14:43
DX: N76.0 Acute vaginitis (principal); Z90.710 Acquired absence of both cervix and uterus; G89.29 Other chronic pain; R10.9 Unspecified abdominal pain; Z87.440 Personal history of urinary (tract) infections
CPT/HCPCS: 84703; 87210; 87491; A4663

== ENCOUNTER 2021-10-21 13:12 | Emergency (ER) | payer MEDICAID ==
[~2021-10-21] VITALS: Ht 167.6 cm; Wt 54.4 kg
[~2021-10-21 13:12] MED LIST changes: +FLUC150T5 PO; +TERC20CR5 VG
[2021-10-21 13:33] LABS: *BILIRUBIN,URIN NEGATIVE (NEGATIVE); *BLOOD, URINE 1+ (NEGATIVE); *CLARITY,URINE CLEAR (CLEAR); *COLOR,URINE YELLOW (YELLOW); *KETONES,URINE NEGATIVE (NEGATIVE); *UROBILINOGEN,URINE 0.2 E.U./dl (NORMAL); LEUKOCYTE ESTERASE ,URINE NEGATIVE (NEGATIVE); NITRITE, URINE NEGATIVE (NEGATIVE); UGLUCOSE NEGATIVE (NEGATIVE)
[2021-10-21 13:35] LABS: *URINE HCG, QUAL NEG (NEGATIVE)
--- NOTE | 2021-10-21 14:00 | NUR ---
ASSISSTED MD WITH VAG EXAM, WET MOUNT SENT TO LAB
[2021-10-21 17:44] LABS: BACTERIA,URINE FEW /HPF (NONE SEEN); SQUAMOUS EPITHELIAL CELL,UR MANY /HPF (NONE SEEN); WBC,URINE 0-3 /HPF (0-3)
[2021-10-21] MEDS ORDERED: FLUC200T8 PO (17:45)
[2021-10-21] MEDS ORDERED: CEPH500C2 PO (17:45)
[2021-10-23 08:06] LABS: *TRIC.VAG. NAA Negative (Negative)
[2021-10-23 15:06] LABS: *GC NAA Negative (Negative)
== END 2021-10-21 17:48 | disposition home or self-care (01) ==
LOC: ER 13:12
DX: L29.2 Pruritus vulvae (principal); Z87.440 Personal history of urinary (tract) infections; Z90.710 Acquired absence of both cervix and uterus; G89.29 Other chronic pain; R10.9 Unspecified abdominal pain
CPT/HCPCS: 84703; 87210; 87491; A4663

== ENCOUNTER 2021-12-21 08:06 | Emergency (ER) | payer MEDICAID ==
[~2021-12-21] VITALS: Ht 154.9 cm; Wt 49.0 kg
[~2021-12-21 08:06] MED LIST changes: +CEPH500C2 PO; +FLUC200T8 PO
--- NOTE | 2021-12-21 08:19 | NUR ---
PT IS IN ROOM #2A. DR GERONIMO EVALUATED THE PT.
[2021-12-21] MEDS ORDERED: VALIUM (08:20)
[2021-12-21] MEDS ORDERED: TRAMADOL (08:20)
[2021-12-21 08:30] LABS: *BILIRUBIN,URIN NEGATIVE (NEGATIVE); *BLOOD, URINE 3+ (NEGATIVE); *CLARITY,URINE SLIGHTLY CLOUDY (CLEAR); *COLOR,URINE Brown (YELLOW); *KETONES,URINE NEGATIVE (NEGATIVE); *UROBILINOGEN,URINE 0.2 E.U./dl (NORMAL); LEUKOCYTE ESTERASE ,URINE 2+ (NEGATIVE); NITRITE, URINE NEGATIVE (NEGATIVE); UGLUCOSE NEGATIVE (NEGATIVE)
[2021-12-21] MEDS ORDERED: NITR100C11 PO (08:37)
--- NOTE | 2021-12-21 08:42 | NUR ---
PT WAS D/C'd TO HOME. D/C INSTRUCTIONS GIVEN TO THE PT BY DR GERONIMO.
[2021-12-21 08:43] VITALS: BP 131/71
[2021-12-21 10:51] LABS: WBC,URINE 20-50 /HPF (0-3)
[2021-12-21 10:52] LABS: BACTERIA,URINE MODERATE /HPF (NONE SEEN); SQUAMOUS EPITHELIAL CELL,UR MODERATE /HPF (NONE SEEN)
== END 2021-12-21 08:43 | disposition home or self-care (01) ==
LOC: ER 08:06
DX: N30.90 Cystitis, unspecified without hematuria (principal); Z87.440 Personal history of urinary (tract) infections; Z90.710 Acquired absence of both cervix and uterus; Z88.0 Allergy status to penicillin
CPT/HCPCS: 87086; A4663

== ENCOUNTER 2021-12-27 16:53 | Emergency (ER) | payer MEDICAID ==
[~2021-12-27] VITALS: Ht 152.4 cm; Wt 48.5 kg
[~2021-12-27 16:53] MED LIST changes: -CEPH-570 PO; -CEPH500C2 PO; -FLUC150T PO; -FLUC150T5 PO; -FLUC200T8 PO; -HYDR-4209 PO; -TERC20CR5 VG; +TRAMADOL; +VALIUM
[2021-12-27] MEDS ORDERED: CEPH500C2 PO (17:35)
[2021-12-27] MEDS ORDERED: FLUC150T PO (17:36)
[2021-12-27 17:41] LABS: *BILIRUBIN,URIN NEGATIVE (NEGATIVE); *BLOOD, URINE 3+ (NEGATIVE); *CLARITY,URINE SLIGHTLY CLOUDY (CLEAR); *COLOR,URINE Orange (YELLOW); *KETONES,URINE NEGATIVE (NEGATIVE); LEUKOCYTE ESTERASE ,URINE 3+ (NEGATIVE); NITRITE, URINE POSITIVE (NEGATIVE); UGLUCOSE TRACE (NEGATIVE)
[2021-12-27 17:42] LABS: *URINE HCG, QUAL NEG (NEGATIVE)
[2021-12-27 17:52] VITALS: BP 111/76
[2021-12-27 18:47] LABS: BACTERIA,URINE MODERATE /HPF (NONE SEEN); RBC,URINE 20-50 /HPF (0-3); SQUAMOUS EPITHELIAL CELL,UR FEW /HPF (NONE SEEN); WBC,URINE TNTC /HPF (0-3)
== END 2021-12-27 17:53 | disposition home or self-care (01) ==
LOC: ER 16:56
DX: N39.0 Urinary tract infection, site not specified (principal); B95.1 Streptococcus, group B, as the cause of diseases classified elsewhere; Z90.710 Acquired absence of both cervix and uterus
CPT/HCPCS: 84703; 87086; A4663

== ENCOUNTER 2022-04-09 01:35 | Emergency (ER) | payer MEDICAID ==
[~2022-04-09] VITALS: Ht 167.6 cm; Wt 49.9 kg
[~2022-04-09 01:35] MED LIST changes: +CEPH500C2 PO; +FLUC150T PO
--- NOTE | 2022-04-09 01:45 | NUR ---
Patient walked into ER c/o abdominal pain. Patient states she had laparoscopic appendectomy 1 week ago and states she has had only one BM since. Also request surgical site check for possible infection.
--- NOTE | 2022-04-09 02:00 | NUR ---
Dr. May on bedside for MSE.
[2022-04-09 03:00] LABS: *BILIRUBIN,URIN NEGATIVE (NEGATIVE); *CLARITY,URINE CLEAR (CLEAR); *COLOR,URINE YELLOW (YELLOW); *KETONES,URINE NEGATIVE (NEGATIVE); *UROBILINOGEN,URINE 0.2 E.U./dl (NORMAL); LEUKOCYTE ESTERASE ,URINE NEGATIVE (NEGATIVE); NITRITE, URINE NEGATIVE (NEGATIVE); PH,URINE 6.5 (5.0-8.0); UGLUCOSE NEGATIVE (NEGATIVE)
[2022-04-09 03:01] LABS: *BLOOD, URINE TRACE (NEGATIVE)
[2022-04-09 03:24] LABS: BACTERIA,URINE NONE SEEN /HPF (NONE SEEN); RBC,URINE 0-3 /HPF (0-3); SQUAMOUS EPITHELIAL CELL,UR MODERATE /HPF (NONE SEEN); WBC,URINE 0-3 /HPF (0-3)
[2022-04-09 03:53] LABS: CREATININE 0.7 mg/dL (0.6-1.3); POTASSIUM 4.2 mmol/L (3.5-5.1)
[2022-04-09 03:56] LABS: HEMATOCRIT 31.5 % (31.2-41.9); MEAN CORPUSCULAR HEMOGLOBIN 32.1 uug (24.7-32.8); MEAN CORPUSCULAR VOLUME 91.8 fL (75.5-95.3); PLATELET COUNT (AUTO) 263 K/uL (179-408)
[2022-04-09 03:59] LABS: BILIRUBIN,TOTAL 0.2 mg/dL (0.2-1.0); TOTAL PROTEIN, SERUM 6.8 g/dL (6.4-8.2)
[2022-04-09] MEDS ORDERED: TRIA15CR2 TP (04:59)
[2022-04-09 05:03] VITALS: BP 111/77
--- NOTE | 2022-04-09 05:03 | NUR ---
Patient discharged to home in stable condition. Written and verbal after care instructions given. Patient verbalizes understanding of instructions. Stressed follow up or return to ER for worsening s/s. Patient ambulated fr the ER with steady gait. All belongings with patient.
== END 2022-04-09 05:04 | disposition home or self-care (01) ==
LOC: ER 01:54
DX: R10.2 Pelvic and perineal pain (principal); Z90.710 Acquired absence of both cervix and uterus; G89.29 Other chronic pain; Z88.0 Allergy status to penicillin
CPT/HCPCS: 36415; 85025; 87086; A4663

== ENCOUNTER 2022-05-30 09:31 | Emergency (ER) | payer MEDICAID ==
[~2022-05-30] VITALS: Ht 152.4 cm; Wt 49.9 kg
[~2022-05-30 09:31] MED LIST changes: +TRIA15CR2 TP
--- NOTE | 2022-05-30 10:00 | NUR ---
MD at bedside for evaluation
[2022-05-30 10:42] LABS: HEMATOCRIT 32.7 % (31.2-41.9); MEAN CORPUSCULAR HEMOGLOBIN 32.3 uug (24.7-32.8); MEAN CORPUSCULAR VOLUME 94.7 fL (75.5-95.3); PLATELET COUNT (AUTO) 243 K/uL (179-408)
[2022-05-30 10:48] LABS: *BILIRUBIN,URIN NEGATIVE (NEGATIVE); *BLOOD, URINE 1+ (NEGATIVE); *CLARITY,URINE CLEAR (CLEAR); *COLOR,URINE YELLOW (YELLOW); *KETONES,URINE NEGATIVE (NEGATIVE); *UROBILINOGEN,URINE 0.2 E.U./dl (NORMAL); LEUKOCYTE ESTERASE ,URINE NEGATIVE (NEGATIVE); NITRITE, URINE NEGATIVE (NEGATIVE); PH,URINE 6.5 (5.0-8.0); UGLUCOSE NEGATIVE (NEGATIVE)
[2022-05-30 10:49] LABS: CREATININE 0.6 mg/dL (0.6-1.3); POTASSIUM 3.3 mmol/L (3.5-5.1)
[2022-05-30 10:49] LABS: *URINE HCG, QUAL NEG (NEGATIVE)
[2022-05-30 11:04] LABS: BILIRUBIN,DIRECT 0.1 mg/dL (0.0-0.2); BILIRUBIN,TOTAL 0.3 mg/dL (0.2-1.0); TOTAL PROTEIN, SERUM 6.9 g/dL (6.4-8.2)
[2022-05-30] MEDS ORDERED: POTASSIUM CHLORIDE 20 MEQ POWDER PACKET GT ONE (11:45)
[2022-05-30] MEDS ORDERED: POTASSIUM CHLORIDE 20 MEQ POWDER PACKET ONE (11:53)
[2022-05-30] MEDS ORDERED: FLUC150T PO (13:53)
--- NOTE | 2022-05-30 13:58 | NUR ---
DCD instructions given to pt. who verbalized undertanding.
[2022-05-30 17:28] LABS: BACTERIA,URINE MANY /HPF (NONE SEEN); SQUAMOUS EPITHELIAL CELL,UR MANY /HPF (NONE SEEN); WBC,URINE 0-3 /HPF (0-3)
== END 2022-05-30 14:00 | disposition home or self-care (01) ==
LOC: ER 09:31
DX: N89.8 Other specified noninflammatory disorders of vagina (principal); G89.29 Other chronic pain; R10.30 Lower abdominal pain, unspecified; N80.9 Endometriosis, unspecified; Z90.710 Acquired absence of both cervix and uterus
CPT/HCPCS: 36415; 83690; 84703; 85025; 87086; 87210; A4663

== ENCOUNTER 2022-10-12 23:49 | Emergency (ER) | payer MEDICAID ==
[~2022-10-12] VITALS: Ht 157.5 cm; Wt 50.8 kg
--- NOTE | 2022-10-13 01:52 | NUR ---
Placed patient in room 2B at this time.
--- NOTE | 2022-10-13 01:54 | NUR ---
Dr Byers into eval patient.
[2022-10-13] MEDS ORDERED: FLUCONAZOLE 100 MG TABLET ONE ×2 (01:55→01:56)
[2022-10-13] MEDS ORDERED: FLUC150T PO (01:56)
[2022-10-13] MEDS ORDERED: FLUCONAZOLE 100 MG TABLET PO ONE (02:00)
--- NOTE | 2022-10-13 02:12 | NUR ---
Patient discharged to home in stable condition. Written and verbal after care instructions given. Patient verbalizes understanding of instructions. Stressed follow up or return to ER for worsening s/s. Patient is a/ox4, NAD noted
== END 2022-10-13 02:15 | disposition home or self-care (01) ==
LOC: ER 10-13 00:03
DX: L29.2 Pruritus vulvae (principal); Z87.440 Personal history of urinary (tract) infections
CPT/HCPCS: A4663

== ENCOUNTER 2022-12-30 11:33 | Emergency (ER) | payer MEDICAID ==
[~2022-12-30] VITALS: Ht 157.5 cm; Wt 48.5 kg
--- NOTE | 2022-12-30 11:52 | NUR ---
Pt seen by Safety measures in place. Will continue to monitor.
[2022-12-30 12:41] LABS: *BILIRUBIN,URIN NEGATIVE (NEGATIVE); *BLOOD, URINE 1+ (NEGATIVE); *CLARITY,URINE TURBID (CLEAR); *COLOR,URINE YELLOW (YELLOW); *KETONES,URINE NEGATIVE (NEGATIVE); *UROBILINOGEN,URINE 0.2 E.U./dl (NORMAL); LEUKOCYTE ESTERASE ,URINE 2+ (NEGATIVE); NITRITE, URINE NEGATIVE (NEGATIVE); UGLUCOSE NEGATIVE (NEGATIVE)
[2022-12-30 13:25] LABS: BACTERIA,URINE MANY /HPF (NONE SEEN); SQUAMOUS EPITHELIAL CELL,UR MANY /HPF (NONE SEEN)
[2022-12-30] MEDS ORDERED: CEphaleXIN 500 MG CAPSULE PO ONE (13:45)
[2022-12-30] MEDS ORDERED: FLUCONAZOLE 100 MG TABLET PO ONE (13:45)
[2022-12-30] MEDS ORDERED: FLUC150T PO (13:48)
[2022-12-30] MEDS ORDERED: CEPH500T PO (13:48)
[2022-12-30] MEDS ORDERED: FLUCONAZOLE 100 MG TABLET ONE (13:53)
[2022-12-30] MEDS ORDERED: CEphaleXIN 500 MG CAPSULE ONE (13:54)
== END 2022-12-30 14:14 | disposition home or self-care (01) ==
LOC: ER 11:33
DX: N76.0 Acute vaginitis (principal); N39.0 Urinary tract infection, site not specified; G89.29 Other chronic pain; R10.2 Pelvic and perineal pain; Z90.710 Acquired absence of both cervix and uterus; Z88.0 Allergy status to penicillin
CPT/HCPCS: A4663

== ENCOUNTER 2023-03-24 11:21 | Emergency (ER) | payer MEDICAID ==
[~2023-03-24] VITALS: Ht 152.4 cm; Wt 49.9 kg
[~2023-03-24 11:21] MED LIST changes: +CEPH500T PO; +NAPR500T6 PO; +POLY17PO4 PO
[2023-03-24 11:47] LABS: *BILIRUBIN,URIN NEGATIVE (NEGATIVE); *BLOOD, URINE 2+ (NEGATIVE); *COLOR,URINE YELLOW (YELLOW); *KETONES,URINE NEGATIVE (NEGATIVE); *UROBILINOGEN,URINE 0.2 E.U./dl (NORMAL); LEUKOCYTE ESTERASE ,URINE 1+ (NEGATIVE); NITRITE, URINE NEGATIVE (NEGATIVE); UGLUCOSE NEGATIVE (NEGATIVE)
--- NOTE | 2023-03-24 11:48 | NUR ---
ua collected and sent to lab
--- NOTE | 2023-03-24 11:48 | NUR ---
seen and examined by
[2023-03-24 12:00] LABS: *CLARITY,URINE SLIGHTLY CLOUDY (CLEAR)
[2023-03-24] MEDS ORDERED: NITR100C6 PO (12:22)
[2023-03-24] MEDS ORDERED: FLUCONAZOLE 100 MG TABLET ONE (12:24)
[2023-03-24 12:29] VITALS: BP 130/74
[2023-03-24] MEDS ORDERED: FLUCONAZOLE 100 MG TABLET PO ONE (12:30)
[2023-03-24 13:28] LABS: SQUAMOUS EPITHELIAL CELL,UR MODERATE /HPF (NONE SEEN)
[2023-03-24 13:29] LABS: BACTERIA,URINE FEW /HPF (NONE SEEN); WBC,URINE 0-3 /HPF (0-3)
== END 2023-03-24 12:30 | disposition home or self-care (01) ==
LOC: ER 11:21
DX: N39.0 Urinary tract infection, site not specified (principal); N95.2 Postmenopausal atrophic vaginitis; Z88.0 Allergy status to penicillin; Z79.899 Other long term (current) drug therapy
CPT/HCPCS: A4663

== ENCOUNTER 2023-12-03 02:11 | Emergency (ER) | payer MEDICAID, OTHER ==
[~2023-12-03] VITALS: Ht 157.5 cm; Wt 50.3 kg
[~2023-12-03 02:11] MED LIST changes: +NITR100C6 PO
[2023-12-03 03:22] LABS: *BILIRUBIN,URIN NEGATIVE (NEGATIVE); *BLOOD, URINE 2+ (NEGATIVE); *CLARITY,URINE CLEAR (CLEAR); *COLOR,URINE YELLOW (YELLOW); *KETONES,URINE NEGATIVE (NEGATIVE); *PROTEIN,URINE NEGATIVE (NEGATIVE); *UROBILINOGEN,URINE 0.2 E.U./dl (NORMAL); LEUKOCYTE ESTERASE ,URINE 3+ (NEGATIVE); NITRITE, URINE NEGATIVE (NEGATIVE); UGLUCOSE NEGATIVE (NEGATIVE)
[2023-12-03 03:38] LABS: *URINE HCG, QUAL NEGATIVE (NEGATIVE)
[2023-12-03] MEDS ORDERED: NITROFURANTOIN/NITROFURAN MAC 100 MG CAPSULE PO ONE (04:15)
[2023-12-03] MEDS ORDERED: PHENAZOPYRIDINE HCL 100 MG TABLET ONE (04:15)
[2023-12-03] MEDS ORDERED: PHEN-704 PO (04:16)
[2023-12-03] MEDS: PHENAZOPYRIDINE HCL 100 MG TABLET PO ONE (04:16)
[2023-12-03] MEDS ORDERED: NITR-84 PO (04:16)
[2023-12-03] MEDS: NITROFURANTOIN/NITROFURAN MAC 100 MG CAPSULE PO ONE (04:16)
[2023-12-03 04:25] VITALS: BP 124/75; TEMP 97.9; O2SAT 99
[2023-12-03 04:45] LABS: BACTERIA,URINE MANY /HPF (NONE SEEN); SQUAMOUS EPITHELIAL CELL,UR MODERATE /HPF (NONE SEEN)
== END 2023-12-03 04:25 | disposition home or self-care (01) ==
LOC: ER 02:12
DX: N39.0 Urinary tract infection, site not specified (principal); R30.0 Dysuria; R10.2 Pelvic and perineal pain; Z90.49 Acquired absence of other specified parts of digestive tract; Z79.899 Other long term (current) drug therapy; Z88.0 Allergy status to penicillin
CPT/HCPCS: 84703; A4606; A4663

== ENCOUNTER 2024-02-11 18:29 | Emergency (ER) | payer OTHER ==
[~2024-02-11] VITALS: Ht 154.9 cm; Wt 55.3 kg
[~2024-02-11 18:29] MED LIST changes: +NITR-84 PO; +PHEN-704 PO
[2024-02-11] MEDS ORDERED: KETOROLAC TROMETHAMINE 15 MG INJ ONE (19:15)
[2024-02-11] MEDS ORDERED: METOCLOPRAMIDE HCL 10 MG/2 ML VIAL ONE (19:16)
[2024-02-11] MEDS: KETOROLAC TROMETHAMINE 15 MG INJ IVP ONE (19:20)
[2024-02-11] MEDS: IV NORMAL SALINE 1000 ML BAG IV ONE (19:20)
[2024-02-11] MEDS: METOCLOPRAMIDE HCL 10 MG/2 ML VIAL IV ONE (19:20)
[2024-02-11 19:24] LABS: BASOPHILS % (AUTO) 0.5 % (0.0-2.0); EOSINOPHILS # (AUTO) 0.1 K/uL (0.0-0.7); HEMATOCRIT 36.3 % (31.2-41.9); HEMOGLOBIN 12.3 g/dL (10.9-14.3); LYMPHOCYTES # (AUTO) 1.6 K/uL (0.8-4.8); LYMPHOCYTES % (AUTO) 28.1 % (20.5-51.5); MEAN CORPUSCULAR HEMOGLOBIN 31.6 uug (24.7-32.8); MEAN CORPUSCULAR HGB CONC 34 g/dL (32.3-35.6); MEAN CORPUSCULAR VOLUME 93.5 fL (75.5-95.3); MONOCYTES # (AUTO) 0.5 K/uL (0.1-1.30); MONOCYTES % (AUTO) 8.2 % (0.0-11.0); NEUTROPHILS # (AUTO) 3.4 K/uL (1.8-8.9); NEUTROPHILS % (AUTO) 62.2 % (38.5-71.5); PLATELET COUNT (AUTO) 318 K/uL (179-408); RED BLOOD CELL COUNT(AUTO) 3.88 MIL/uL (3.63-4.92); RED CELL DISTRIBUTION WIDTH 13.5 % (12.3-17.7); WHITE BLOOD COUNT (AUTO) 5.5 K/uL (3.8-11.8)
[2024-02-11 19:25] LABS: *BILIRUBIN,URIN NEGATIVE (NEGATIVE); *BLOOD, URINE 2+ (NEGATIVE); *CLARITY,URINE CLEAR (CLEAR); *COLOR,URINE YELLOW (YELLOW); *KETONES,URINE NEGATIVE (NEGATIVE); *PROTEIN,URINE NEGATIVE (NEGATIVE); *UROBILINOGEN,URINE 0.2 E.U./dl (NORMAL); LEUKOCYTE ESTERASE ,URINE NEGATIVE (NEGATIVE); NITRITE, URINE NEGATIVE (NEGATIVE); PH,URINE 5.5 (5.0-8.0); UGLUCOSE NEGATIVE (NEGATIVE)
[2024-02-11 19:27] LABS: DIFFERENTIAL COMMENT 1
[2024-02-11 19:36] LABS: CALCIUM 8.7 mg/dL (8.5-10.1); CARBON DIOXIDE 24 mmol/L (21-32); CHLORIDE 104 mmol/L (98-107); CREATININE 0.6 mg/dL (0.6-1.3); GLUCOSE 116 mg/dL (74-106); POTASSIUM 3.9 mmol/L (3.5-5.1); SODIUM SERUM 139 mmol/L (136-145); UREA NITROGEN, BLOOD 12 mg/dL (7-18)
[2024-02-11 19:41] LABS: ALANINE AMINOTRANSFERASE 31 U/L (14-59); ALBUMIN 3.4 g/dL (3.4-5.0); ALKALINE PHOSPHATASE 69 U/L (50-136); ASPARTATE AMINOTRANSFERASE 18 U/L (15-37); BILIRUBIN,DIRECT < 0.1 mg/dL (0.0-0.2); BILIRUBIN,TOTAL 0.2 mg/dL (0.2-1.0); LIPASE 49 U/L (16-77)
[2024-02-11 19:50] LABS: BACTERIA,URINE MODERATE /HPF (NONE SEEN); SQUAMOUS EPITHELIAL CELL,UR MANY /HPF (NONE SEEN); YEAST,URINE FEW /HPF (NONE SEEN)
[2024-02-11] MEDS ORDERED: IV NORMAL SALINE 250 ML IV ONE (21:16)
[2024-02-11] MEDS ORDERED: IOHEXOL 300MG/ML 100 ML INFUS..BTL ONE (21:17)
[2024-02-11] MEDS ORDERED: SWABABLE VALVE TRANSFER SET EA MC ONE (21:17)
[2024-02-11] MEDS ORDERED: MAGN400O6 PO (22:06)
[2024-02-11] MEDS ORDERED: CEPH500C2 PO (22:06)
[2024-02-11] MEDS ORDERED: SENN1TAB33 PO (22:06)
[2024-02-11 22:15] VITALS: BP 117/68; O2SAT 99
== END 2024-02-11 22:15 | disposition home or self-care (01) ==
LOC: ER 18:31
DX: G89.29 Other chronic pain (principal); R10.32 Left lower quadrant pain; N39.0 Urinary tract infection, site not specified; K59.00 Constipation, unspecified; Z90.49 Acquired absence of other specified parts of digestive tract; Z98.890 Other specified postprocedural states; Z79.899 Other long term (current) drug therapy; Z88.0 Allergy status to penicillin
CPT/HCPCS: 99285; 74177; 96374; 96361; 96375; 80076; 80048; 81001; 83690; 85025; 36415; J1885; J2765; Q9967; J7040; A4606; A4663

== ENCOUNTER 2024-04-25 08:10 | Emergency (ER) | payer OTHER ==
[~2024-04-25] VITALS: Ht 154.9 cm; Wt 55.8 kg
[~2024-04-25 08:10] MED LIST changes: +MAGN400O6 PO; +SENN1TAB33 PO
[2024-04-25] MEDS ORDERED: ONDANSETRON 4 MG/2 ML VIAL ONE (08:42)
[2024-04-25] MEDS ORDERED: OXYCODONE/APAP 5-325 MG TABLET ONE (08:43)
[2024-04-25] MEDS ORDERED: HYDROCODONE/APAP 5-325MG TABLET PO ONE (08:45)
[2024-04-25] MEDS: HYDROCODONE/APAP 5-325MG TABLET PO ONE (08:52)
[2024-04-25] MEDS: ONDANSETRON 4 MG/2 ML VIAL IV ONE (08:53)
[2024-04-25 08:54] LABS: *URINE HCG, QUAL NEGATIVE (NEGATIVE)
[2024-04-25 08:56] LABS: BASOPHILS % (AUTO) 0.6 % (0.0-2.0); EOSINOPHILS # (AUTO) 0.1 K/uL (0.0-0.7); EOSINOPHILS % (AUTO) 1.4 % (0.0-7.0); HEMATOCRIT 36.7 % (31.2-41.9); LYMPHOCYTES # (AUTO) 1.8 K/uL (0.8-4.8); LYMPHOCYTES % (AUTO) 35.4 % (20.5-51.5); MEAN CORPUSCULAR HEMOGLOBIN 30.9 uug (24.7-32.8); MEAN CORPUSCULAR HGB CONC 33 g/dL (32.3-35.6); MEAN CORPUSCULAR VOLUME 94.4 fL (75.5-95.3); MONOCYTES # (AUTO) 0.5 K/uL (0.1-1.30); MONOCYTES % (AUTO) 9.2 % (0.0-11.0); NEUTROPHILS # (AUTO) 2.8 K/uL (1.8-8.9); NEUTROPHILS % (AUTO) 53.4 % (38.5-71.5); PLATELET COUNT (AUTO) 270 K/uL (179-408); RED BLOOD CELL COUNT(AUTO) 3.88 MIL/uL (3.63-4.92); RED CELL DISTRIBUTION WIDTH 13.3 % (12.3-17.7); WHITE BLOOD COUNT (AUTO) 5.2 K/uL (3.8-11.8)
[2024-04-25 08:57] LABS: DIFFERENTIAL COMMENT 1
[2024-04-25 09:15] LABS: CALCIUM 9.1 mg/dL (8.5-10.1); CARBON DIOXIDE 23 mmol/L (21-32); CHLORIDE 103 mmol/L (98-107); CREATININE 0.7 mg/dL (0.6-1.3); GLUCOSE 93 mg/dL (74-106); POTASSIUM 3.5 mmol/L (3.5-5.1); SODIUM SERUM 135 mmol/L (136-145); UREA NITROGEN, BLOOD 10 mg/dL (7-18)
[2024-04-25 09:21] LABS: ALANINE AMINOTRANSFERASE 52 U/L (14-59); ALBUMIN 3.7 g/dL (3.4-5.0); ALKALINE PHOSPHATASE 60 U/L (50-136); ASPARTATE AMINOTRANSFERASE 29 U/L (15-37); BILIRUBIN,DIRECT 0.1 mg/dL (0.0-0.2); BILIRUBIN,TOTAL 0.4 mg/dL (0.2-1.0); LIPASE 59 U/L (16-77); TOTAL PROTEIN, SERUM 7.4 g/dL (6.4-8.2)
[2024-04-25 09:26] LABS: PREGNANCY TEST SERUM QUAN < 1 miul/L (0-6)
[2024-04-25] MEDS ORDERED: HYDR-4209 PO (09:35)
[2024-04-25] MEDS ORDERED: ESTR42.53 VG ×2 (10:28)
[2024-04-25] MEDS ORDERED: ONDA4TAB5 PO (10:29)
[2024-04-25] MEDS ORDERED: DICY10CA13 PO (10:29)
[2024-04-25 10:36] VITALS: BP 109/71; O2SAT 99
== END 2024-04-25 10:37 | disposition home or self-care (01) ==
LOC: ER 08:10
DX: N76.0 Acute vaginitis (principal); R10.2 Pelvic and perineal pain; R10.9 Unspecified abdominal pain; Z79.1 Long term (current) use of non-steroidal anti-inflammatories (NSAID); Z90.49 Acquired absence of other specified parts of digestive tract; Z79.899 Other long term (current) drug therapy; Z88.0 Allergy status to penicillin
CPT/HCPCS: 99285; 74176; 96374; 80076; 80048; 84703; 83690; 85025; 84702; 36415; J2405; A4606; A4663

== ENCOUNTER 2024-05-19 16:28 | Emergency (ER) | payer OTHER ==
[~2024-05-19] VITALS: Ht 154.9 cm; Wt 53.5 kg
[~2024-05-19 16:28] MED LIST changes: +DICY10CA13 PO; +ESTR42.53 VG; +ONDA4TAB5 PO
[2024-05-19 16:33] VITALS: O2SAT 97
[2024-05-19 17:04] LABS: *BILIRUBIN,URIN NEGATIVE (NEGATIVE); *BLOOD, URINE 2+ (NEGATIVE); *KETONES,URINE NEGATIVE (NEGATIVE); *PROTEIN,URINE NEGATIVE (NEGATIVE); LEUKOCYTE ESTERASE ,URINE 1+ (NEGATIVE); NITRITE, URINE POSITIVE (NEGATIVE); PH,URINE 5.5 (5.0-8.0); UGLUCOSE TRACE (NEGATIVE)
[2024-05-19 17:22] LABS: *CLARITY,URINE SLIGHTLY CLOUDY (CLEAR); *COLOR,URINE ORANGE (YELLOW)
[2024-05-19] MEDS ORDERED: PHEN-705 PO (17:42)
[2024-05-19] MEDS ORDERED: SULF1TAB48 PO (17:42)
[2024-05-19 17:43] LABS: BACTERIA,URINE MODERATE /HPF (NONE SEEN); SQUAMOUS EPITHELIAL CELL,UR MODERATE /HPF (NONE SEEN)
[2024-05-19] MEDS ORDERED: SULFAMETH/TRIMETH 800/160 MG TABLET ONE (17:48)
[2024-05-19] MEDS: SULFAMETH/TRIMETH 800/160 MG TABLET PO ONE (17:48)
== END 2024-05-19 17:49 | disposition home or self-care (01) ==
LOC: ER 16:30
DX: N30.90 Cystitis, unspecified without hematuria (principal); Z90.49 Acquired absence of other specified parts of digestive tract; Z79.899 Other long term (current) drug therapy; Z88.0 Allergy status to penicillin
CPT/HCPCS: A4606; A4663

== ENCOUNTER 2024-06-08 20:56 | Emergency (ER) | payer OTHER ==
[~2024-06-08] VITALS: Ht 157.5 cm; Wt 54.4 kg
[~2024-06-08 20:56] MED LIST changes: +PHEN-705 PO; +SULF1TAB48 PO
[2024-06-08 21:23] LABS: *BILIRUBIN,URIN NEGATIVE (NEGATIVE); *BLOOD, URINE 2+ (NEGATIVE); *CLARITY,URINE CLEAR (CLEAR); *COLOR,URINE YELLOW (YELLOW); *KETONES,URINE NEGATIVE (NEGATIVE); *PROTEIN,URINE NEGATIVE (NEGATIVE); *UROBILINOGEN,URINE 0.2 E.U./dl (NORMAL); LEUKOCYTE ESTERASE ,URINE 1+ (NEGATIVE); NITRITE, URINE POSITIVE (NEGATIVE); UGLUCOSE NEGATIVE (NEGATIVE)
[2024-06-08 21:48] LABS: BACTERIA,URINE FEW /HPF (NONE SEEN)
[2024-06-08 21:49] LABS: SQUAMOUS EPITHELIAL CELL,UR MODERATE /HPF (NONE SEEN)
[2024-06-08] MEDS ORDERED: IBUP-1953 PO (22:13)
[2024-06-08] MEDS ORDERED: NITR100C PO (22:13)
[2024-06-08] MEDS ORDERED: FLUCONAZOLE 100 MG TABLET ONE (22:22)
[2024-06-08] MEDS ORDERED: IBUPROFEN 400 MG TABLET ONE (22:22)
[2024-06-08] MEDS ORDERED: CEphaleXIN 500 MG CAPSULE ONE (22:23)
[2024-06-08] MEDS: IBUPROFEN 400 MG TABLET PO ONE (22:27)
[2024-06-08] MEDS: CEphaleXIN 500 MG CAPSULE PO ONE (22:27)
[2024-06-08] MEDS: FLUCONAZOLE 100 MG TABLET PO ONE (22:27)
[2024-06-08 22:32] VITALS: BP 128/79; TEMP 97.7; O2SAT 98
== END 2024-06-08 22:31 | disposition home or self-care (01) ==
LOC: ER 20:57
DX: R30.0 Dysuria (principal); R35.0 Frequency of micturition; Z79.1 Long term (current) use of non-steroidal anti-inflammatories (NSAID); Z90.49 Acquired absence of other specified parts of digestive tract; Z98.890 Other specified postprocedural states; Z79.899 Other long term (current) drug therapy; Z88.0 Allergy status to penicillin
CPT/HCPCS: A4606; A4663

== ENCOUNTER 2025-03-16 00:04 | Emergency (ER) | payer OTHER ==
[~2025-03-16] VITALS: Ht 154.9 cm; Wt 51.7 kg
[~2025-03-16 00:04] MED LIST changes: +IBUP-1953 PO; +NITR100C PO
[2025-03-16 00:32] LABS: *BILIRUBIN,URIN NEGATIVE (NEGATIVE); *BLOOD, URINE 2+ (NEGATIVE); *CLARITY,URINE CLEAR (CLEAR); *COLOR,URINE YELLOW (YELLOW); *KETONES,URINE NEGATIVE (NEGATIVE); *PROTEIN,URINE NEGATIVE (NEGATIVE); *UROBILINOGEN,URINE 0.2 E.U./dl (NORMAL); LEUKOCYTE ESTERASE ,URINE NEGATIVE (NEGATIVE); NITRITE, URINE NEGATIVE (NEGATIVE); UGLUCOSE NEGATIVE (NEGATIVE)
[2025-03-16 00:37] LABS: BACTERIA,URINE FEW /HPF (NONE SEEN)
[2025-03-16 00:38] LABS: SQUAMOUS EPITHELIAL CELL,UR MODERATE /HPF (NONE SEEN)
[2025-03-16] MEDS ORDERED: ACETAMINOPHEN 500 MG TABLET ONE (00:45)
[2025-03-16] MEDS ORDERED: ONDANSETRON ODT 4 MG TAB.RAPDIS ONE (00:45)
[2025-03-16 00:46] LABS: BASOPHILS % (AUTO) 0.2 % (0.0-2.0); DIFFERENTIAL COMMENT 1; EOSINOPHILS # (AUTO) 0.1 K/uL (0.0-0.7); EOSINOPHILS % (AUTO) 1.5 % (0.0-7.0); HEMATOCRIT 35.6 % (31.2-41.9); HEMOGLOBIN 12.2 g/dL (10.9-14.3); LYMPHOCYTES # (AUTO) 1.7 K/uL (0.8-4.8); LYMPHOCYTES % (AUTO) 17.5 % (20.5-51.5); MEAN CORPUSCULAR HEMOGLOBIN 31.1 uug (24.7-32.8); MEAN CORPUSCULAR HGB CONC 34 g/dL (32.3-35.6); MEAN CORPUSCULAR VOLUME 90.7 fL (75.5-95.3); MONOCYTES # (AUTO) 0.8 K/uL (0.1-1.30); MONOCYTES % (AUTO) 8.1 % (0.0-11.0); NEUTROPHILS # (AUTO) 6.9 K/uL (1.8-8.9); NEUTROPHILS % (AUTO) 72.7 % (38.5-71.5); PLATELET COUNT (AUTO) 264 K/uL (179-408); RED BLOOD CELL COUNT(AUTO) 3.93 MIL/uL (3.63-4.92); RED CELL DISTRIBUTION WIDTH 13.8 % (12.3-17.7); WHITE BLOOD COUNT (AUTO) 9.5 K/uL (3.8-11.8)
[2025-03-16] MEDS ORDERED: IBUPROFEN 600 MG TABLET ONE (00:46)
[2025-03-16 00:47] LABS: *URINE HCG, QUAL NEGATIVE (NEGATIVE)
[2025-03-16 00:54] LABS: CALCIUM 8.6 mg/dL (8.5-10.1); CREATININE 0.8 mg/dL (0.6-1.3); POTASSIUM 3.1 mmol/L (3.5-5.1)
[2025-03-16 00:59] LABS: ALBUMIN 3.2 g/dL (3.4-5.0); BILIRUBIN,TOTAL 0.3 mg/dL (0.2-1.0); MAGNESIUM 1.9 mg/dL (1.8-2.4); TOTAL PROTEIN, SERUM 6.7 g/dL (6.4-8.2)
[2025-03-16 01:00] LABS: C-REACTIVE PROTEIN 8.6 mg/dL (0.00-0.30)
[2025-03-16] MEDS: IBUPROFEN 600 MG TABLET PO ONE (01:04)
[2025-03-16] MEDS: ONDANSETRON HCL 4 MG TABLET PO ONE (01:04)
[2025-03-16] MEDS: ACETAMINOPHEN 500 MG TABLET PO ONE (01:04)
[2025-03-16] MEDS ORDERED: POTASSIUM CHLORIDE 20 MEQ TAB.PRT.SR ONE (01:44)
[2025-03-16] MEDS: POTASSIUM CHLORIDE 20 MEQ TAB.PRT.SR PO ONE (01:50)
[2025-03-16] MEDS ORDERED: ONDA4TAB5 PO (02:17)
[2025-03-16] MEDS ORDERED: IBUP-1955 PO (02:17)
[2025-03-16] MEDS ORDERED: ACET-3102 PO (02:17)
[2025-03-16] MEDS ORDERED: CEPH500C2 PO (02:17)
[2025-03-16] MEDS ORDERED: POLY119P3 PO (02:17)
[2025-03-16 02:33] VITALS: BP 101/62; TEMP 98.1; O2SAT 98
== END 2025-03-16 02:30 | disposition home or self-care (01) ==
LOC: ER 00:04
DX: N39.0 Urinary tract infection, site not specified (principal); M54.50 Low back pain, unspecified; R11.0 Nausea; Z88.0 Allergy status to penicillin; Z90.710 Acquired absence of both cervix and uterus
CPT/HCPCS: 36415; 72110; 74018; 83690; 83735; 84703; 85025; 86140; A4606; A4663; A9150; Q0162

== ENCOUNTER 2025-06-15 17:40 | Emergency (ER) | payer OTHER ==
[~2025-06-15] VITALS: Ht 152.4 cm; Wt 63.5 kg
[~2025-06-15 17:40] MED LIST changes: +ACET-3102 PO; +IBUP-1955 PO; +POLY119P3 PO
[2025-06-15 18:17] LABS: PLATELET COUNT (AUTO) 318 K/uL (179-408); RED BLOOD CELL COUNT(AUTO) 4.03 MIL/uL (3.63-4.92); RED CELL DISTRIBUTION WIDTH 14.2 % (12.3-17.7); WHITE BLOOD COUNT (AUTO) 6.4 K/uL (3.8-11.8)
[2025-06-15] MEDS ORDERED: HYDROMORPHONE 1 MG/1 ML DISP.SYRIN ONE (18:30)
[2025-06-15] MEDS ORDERED: ONDANSETRON 4 MG/2 ML VIAL ONE (18:31)
[2025-06-15 18:34] LABS: *BILIRUBIN,URIN NEGATIVE (NEGATIVE); *BLOOD, URINE 2+ (NEGATIVE); *CLARITY,URINE CLEAR (CLEAR); *COLOR,URINE YELLOW (YELLOW); *KETONES,URINE NEGATIVE (NEGATIVE); *PROTEIN,URINE NEGATIVE (NEGATIVE); *UROBILINOGEN,URINE 0.2 E.U./dl (NORMAL); LEUKOCYTE ESTERASE ,URINE NEGATIVE (NEGATIVE); NITRITE, URINE NEGATIVE (NEGATIVE); UGLUCOSE NEGATIVE (NEGATIVE)
[2025-06-15 18:38] LABS: ASPARTATE AMINOTRANSFERASE 11 U/L (15-37); CREATININE 0.5 mg/dL (0.6-1.3); SODIUM SERUM 140 mmol/L (136-145); TOTAL PROTEIN, SERUM 7.4 g/dL (6.4-8.2); UREA NITROGEN, BLOOD 11 mg/dL (7-18)
[2025-06-15 18:41] LABS: *URINE HCG, QUAL NEGATIVE (NEGATIVE)
[2025-06-15] MEDS: ONDANSETRON 4 MG/2 ML VIAL IV ONE (18:42)
[2025-06-15] MEDS: HYDROMORPHONE 1 MG/1 ML DISP.SYRIN IV ONE (18:42)
[2025-06-15] MEDS: IV NORMAL SALINE 1000 ML BAG IV ONE (18:42)
[2025-06-15 18:46] LABS: SQUAMOUS EPITHELIAL CELL,UR MODERATE /HPF (NONE SEEN)
[2025-06-15] MEDS ORDERED: SWABABLE VALVE TRANSFER SET EA MC ONE (19:08)
[2025-06-15] MEDS ORDERED: IV NORMAL SALINE 250 ML IV ONE (19:08)
[2025-06-15] MEDS ORDERED: IOHEXOL 300MG/ML 100 ML INFUS..BTL ONE (19:08)
[2025-06-15 20:00] VITALS: BP 129/63
[2025-06-15] MEDS ORDERED: SULF1TAB48 PO (20:38)
[2025-06-15] MEDS ORDERED: TRAM50TA2 PO (20:39)
[2025-06-15 20:58] VITALS: BP 126/60; O2SAT 99
== END 2025-06-15 20:59 | disposition home or self-care (01) ==
LOC: ER 17:43
DX: K52.9 Noninfective gastroenteritis and colitis, unspecified (principal); K59.00 Constipation, unspecified; G89.29 Other chronic pain; E16.2 Hypoglycemia, unspecified; Z87.440 Personal history of urinary (tract) infections; Z88.0 Allergy status to penicillin; Z90.49 Acquired absence of other specified parts of digestive tract; Z90.710 Acquired absence of both cervix and uterus; Z90.721 Acquired absence of ovaries, unilateral; Z90.722 Acquired absence of ovaries, bilateral; Z87.19 Personal history of other diseases of the digestive system
CPT/HCPCS: 99285; 74177; 96374; 76705; 96361; 96375; 80076; 80048; 81001; 84703; 83690; 85025; 36415; J2405; Q9967; J1171; J7040; A4606; A4663

== ENCOUNTER 2025-07-08 23:01 | Emergency (ER) | payer OTHER ==
[~2025-07-08] VITALS: Ht 152.4 cm; Wt 63.5 kg
[~2025-07-08 23:01] MED LIST changes: +TRAM50TA2 PO
[2025-07-08 23:54] LABS: PLATELET COUNT (AUTO) 296 K/uL (179-408); RED BLOOD CELL COUNT(AUTO) 3.84 MIL/uL (3.63-4.92); RED CELL DISTRIBUTION WIDTH 13.9 % (12.3-17.7); WHITE BLOOD COUNT (AUTO) 6.0 K/uL (3.8-11.8)
[2025-07-09 00:02] LABS: CREATININE 0.5 mg/dL (0.6-1.3); SODIUM SERUM 143 mmol/L (136-145); UREA NITROGEN, BLOOD 13 mg/dL (7-18)
[2025-07-09 00:08] LABS: ASPARTATE AMINOTRANSFERASE 14 U/L (15-37); TOTAL PROTEIN, SERUM 7.5 g/dL (6.4-8.2)
[2025-07-09 00:56] VITALS: BP 120/78
[2025-07-09 01:42] VITALS: BP 122/80; O2SAT 99
== END 2025-07-09 01:38 | disposition home or self-care (01) ==
LOC: ER 23:01
DX: N95.1 Menopausal and female climacteric states (principal); Z87.440 Personal history of urinary (tract) infections; Z88.0 Allergy status to penicillin; Z90.49 Acquired absence of other specified parts of digestive tract; Z90.710 Acquired absence of both cervix and uterus; Z90.721 Acquired absence of ovaries, unilateral; Z87.19 Personal history of other diseases of the digestive system
CPT/HCPCS: 36415; 84443; 85025; A4606; A4663